=== PATIENT | male | born 1970 | race African-American/Black ===

== ENCOUNTER 2018-05-15 20:06 | Emergency (ER) | payer MEDICAID ==
[~2018-05-15] VITALS: Ht 177.8 cm; Wt 68.0 kg
[2018-05-15] MEDS ORDERED: VISCOUS LIDOCAINE 2% 15 ML UDC PO STA (22:09)
[2018-05-15] MEDS ORDERED: MAGNESIUM/ALUMINUM HYDROXIDE/SIMETHICONE 30ML UDC PO STA (22:09)
[2018-05-15] MEDS ORDERED: SODIUM CHLORIDE 0.9% 1,000 ML IV ONE (22:09)
[2018-05-15] MEDS ORDERED: PANTOPRAZOLE SODIUM 40 MG/VIAL IV STA (22:09)
[2018-05-15] MEDS ORDERED: NITROGLYCERIN 0.4MG TABLET SL SL ONE (22:30)
[2018-05-15] MEDS ORDERED: ASPIRIN 325MG EC TABLET PO ONE (22:30)
[2018-05-15 22:43] LABS: BASOPHILS % 0.6 % (0.0-2.0); HEMATOCRIT. 50.1 % (42.0-52.0); HEMOGLOBIN. 17.2 g/dL (14.0-18.0); LYMPHOCYTES % 25.9 % (20.0-50.0); MEAN CORPUSCULAR HEMOGLOBIN 29.5 pg (28.0-32.0); MEAN CORPUSCULAR VOLUME 86.1 fL (80.0-94.0); MEAN PLATELET VOLUME 7.1 fl (7.4-10.4); MONOCYTES % 13.1 % (2.0-8.0); NEUTROPHILS % 59.4 % (40.0-76.0); PLATELET 334 x1000/uL (130-400); RED BLOOD CELL COUNT 5.82 mill/uL (4.7-6.1); RED CELL DISTRIBUTION WIDTH 12.7 % (11.6-14.6)
[2018-05-15 22:45] LABS: CHLORIDE 89 mEq/L (98-107)
[2018-05-15 22:59] VITALS: BP 151/101
[2018-05-15] MEDS ORDERED: MORPHINE SULFATE 4 MG/ML CPJ (NOT FOR IM USE) IV ONE (23:00)
== END 2018-05-15 23:21 | disposition short-term general hospital (02) ==
LOC: ER 20:06
DX: I21.3 ST elevation (STEMI) myocardial infarction of unspecified site (principal); F17.200 Nicotine dependence, unspecified, uncomplicated
CPT/HCPCS: 36415; 71045; 80053; 83690; 84484; 85025; 93005; 96361; 96374; 96375; 99291; C9113; J2270; J7030

== ENCOUNTER 2019-02-21 13:19 | Emergency (ER) | payer MEDICAID ==
[~2019-02-21] VITALS: Ht 177.8 cm; Wt 60.0 kg
[2019-02-21] MEDS ORDERED: SODIUM CHLORIDE 0.9% 1,000 ML IV ONE (14:19)
[2019-02-21] MEDS ORDERED: ONDANSETRON HCL 4MG/2ML INJ IV STA (14:19)
[2019-02-21] MEDS ORDERED: MORPHINE SULFATE 4 MG/ML CPJ (NOT FOR IM USE) IV STA (14:19)
[2019-02-21] MEDS ORDERED: FAMOTIDINE 20MG/2ML VIAL IV ONE (14:30)
[2019-02-21] MEDS ORDERED: MAGNESIUM/ALUMINUM HYDROXIDE/SIMETHICONE 30ML UDC PO ONE (14:30)
[2019-02-21 14:48] LABS: BASOPHILS % 0.2 % (0.0-2.0); HEMATOCRIT. 45.3 % (42.0-52.0); HEMOGLOBIN. 14.7 g/dL (14.0-18.0); LYMPHOCYTES % 7.4 % (20.0-50.0); MEAN CORPUSCULAR HEMOGLOBIN 28.6 pg (28.0-32.0); MEAN PLATELET VOLUME 7.3 fl (7.4-10.4); MONOCYTES % 3.4 % (2.0-8.0); PLATELET 361 x1000/uL (130-400); RED BLOOD CELL COUNT 5.15 mill/uL (4.7-6.1); RED CELL DISTRIBUTION WIDTH 13.4 % (11.6-14.6)
[2019-02-21 14:56] LABS: CHLORIDE 106 mEq/L (98-107); PROTHROMBIN TIME 10.7 sec (9.6-11.0)
[2019-02-21 15:23] LABS: CLARITY URINE CLOUDY (CLEAR); COLOR URINE YELLOW (YELLOW); KETONES URINE NEGATIVE (NEGATIVE); LEUKOCYTE ESTERASE URINE NEGATIVE (NEGATIVE); NITRITE URINE NEGATIVE (NEGATIVE); OCCULT BLOOD URINE NEGATIVE (NEGATIVE); PH URINE >=9.0 (4.5-8.0); PROTEIN URINE 2+ (NEGATIVE); SPECIFIC GRAVITY URINE 1.025 (1.005-1.030); UROBILINOGEN URINE 0.2 E.U./dL (0.2-1.0)
[2019-02-21 16:10] LABS: *BARBITURATES SCREEN URINE NEGATIVE (NEGATIVE)
[2019-02-21 16:11] LABS: *AMPHETAMINES SCREEN URINE NEGATIVE (NEGATIVE); *BENZODIAZEPINES SCREEN URINE NEGATIVE (NEGATIVE); *COCAINE SCREEN URINE NEGATIVE (NEGATIVE); METHADONE URINE SCREEN NEGATIVE (NEGATIVE); OPIATES URINE SCREEN NEGATIVE (NEGATIVE); PHENCYCLIDINE URINE SCREEN NEGATIVE (NEGATIVE)
[2019-02-21 16:12] LABS: CANNABINOID URINE SCREEN PRESUMTIVE POSITIVE (NEGATIVE)
[2019-02-21] MEDS ORDERED: KETOROLAC 30MG/ML VIAL IV ONE (16:45)
[2019-02-21] MEDS ORDERED: METOCLOPRAMIDE HCL 10MG/2ML VIAL IV ONE (17:15)
[2019-02-21 21:08] VITALS: BP 132/67
== END 2019-02-21 21:10 | disposition home or self-care (01) ==
LOC: ER 13:19
DX: K29.70 Gastritis, unspecified, without bleeding (principal); J44.9 Chronic obstructive pulmonary disease, unspecified; R80.9 Proteinuria, unspecified; R11.10 Vomiting, unspecified; F12.10 Cannabis abuse, uncomplicated; Z87.891 Personal history of nicotine dependence
CPT/HCPCS: 36415; 71045; 74176; 80053; 80305; 80320; 81003; 83690; 83880; 84484; 85025; 85610; 93005; 96361; 96374; 96375; 99284; J1885; J2270; J2405; J2765; J3490; J7030; G0480

== ENCOUNTER 2019-02-25 00:17 | Inpatient (IN) | payer MEDICAID ==
[~2019-02-25] VITALS: Ht 177.8 cm; Wt 68.0 kg
[2019-02-25] MEDS ORDERED: SODIUM CHLORIDE 0.9% 1,000 ML IV ONE (03:52)
[2019-02-25] MEDS ORDERED: KETOROLAC 30MG/ML VIAL IV STA (03:52)
[2019-02-25] MEDS ORDERED: METOCLOPRAMIDE HCL 10MG/2ML VIAL IV STA (03:52)
[2019-02-25 04:03] LABS: BASOPHILS % 0.4 % (0.0-2.0); CHLORIDE 98 mEq/L (98-107); EOSINOPHILS % 0.3 % (0.0-5.0); HEMATOCRIT. 49.9 % (42.0-52.0); HEMOGLOBIN. 16.5 g/dL (14.0-18.0); LYMPHOCYTES % 21.3 % (20.0-50.0); MEAN CORPUSCULAR HEMOGLOBIN 28.8 pg (28.0-32.0); MEAN CORPUSCULAR VOLUME 86.9 fL (80.0-94.0); MEAN PLATELET VOLUME 7.3 fl (7.4-10.4); MONOCYTES % 11.5 % (2.0-8.0); NEUTROPHILS % 66.5 % (40.0-76.0); PLATELET 378 x1000/uL (130-400); RED BLOOD CELL COUNT 5.74 mill/uL (4.7-6.1); RED CELL DISTRIBUTION WIDTH 13.2 % (11.6-14.6)
[2019-02-25] MEDS ORDERED: NA PHOS,M-B/NA PHOS,DI-BA ENEMA 118ML PR PRN (06:45)
[2019-02-25] MEDS ORDERED: DOCUSATE SODIUM 100MG CAPSULE PO PRN (06:45)
[2019-02-25] MEDS ORDERED: LORAZEPAM 2MG/ML CPJ IV PRN (06:45)
[2019-02-25] MEDS ORDERED: CLONIDINE 0.1MG TABLET PO PRN (06:45)
[2019-02-25] MEDS ORDERED: DIPHENHYDRAMINE 50MG/ML VIAL IV PRN (06:45)
[2019-02-25] MEDS ORDERED: HYDROCODONE/ACETAMINOPHEN 10/325MG TABLET PO PRN (06:45)
[2019-02-25] MEDS ORDERED: ACETAMINOPHEN 325MG TABLET PO PRN (06:45)
[2019-02-25] MEDS ORDERED: GUAIFENESIN 200MG/10ML SUGAR FREE UDC PO PRN (06:45)
[2019-02-25] MEDS ORDERED: IPRATROPIUM/ALBUTEROL 0.5-3(2.5)MG/3ML NEB HHN PRN (06:45)
[2019-02-25] MEDS ORDERED: MAGNESIUM/ALUMINUM HYDROXIDE/SIMETHICONE 30ML UDC PO PRN (06:45)
[2019-02-25] MEDS ORDERED: POTASSIUM CHLORIDE 20MEQ TABLET SR PO ONE (06:50)
[2019-02-25 08:00] VITALS: BP 118/99
[2019-02-25] MEDS: ENOXAPARIN 40MG/0.4ML SYR SUBCUT SCH (09:52)
[2019-02-25] MEDS: ONDANSETRON HCL 4MG/2ML INJ IV PRN ×2 (10:13→18:38)
[2019-02-25] MEDS: MORPHINE SULFATE 2 MG/ML CPJ (NOT FOR IM USE) IV PRN ×3 (10:14→18:41)
[2019-02-25] MEDS: SODIUM CHLORIDE 0.9% INJ 3ML FLUSH IVF SCH (13:45)
[2019-02-25] MEDS: SODIUM CHLORIDE 0.45% 1,000 ML IV SCH (17:24)
[2019-02-25 20:00] VITALS: BP 108/76
[2019-02-26] VITALS: BP 110/75
[2019-02-26] MEDS: SODIUM CHLORIDE 0.9% INJ 3ML FLUSH IVF SCH ×3 (00:28→14:17)
[2019-02-26] MEDS: SODIUM CHLORIDE 0.45% 1,000 ML IV SCH ×2 (02:31→12:30)
[2019-02-26 04:00] VITALS: BP 98/73
[2019-02-26 06:57] LABS: BASOPHILS % 0.7 % (0.0-2.0); EOSINOPHILS % 2.9 % (0.0-5.0); HEMATOCRIT. 44.6 % (42.0-52.0); LYMPHOCYTES % 28.6 % (20.0-50.0); MEAN CORPUSCULAR HEMOGLOBIN 29.1 pg (28.0-32.0); MEAN CORPUSCULAR VOLUME 86.7 fL (80.0-94.0); MEAN PLATELET VOLUME 7.1 fl (7.4-10.4); MONOCYTES % 10.5 % (2.0-8.0); NEUTROPHILS % 57.3 % (40.0-76.0); PLATELET 326 x1000/uL (130-400); RED BLOOD CELL COUNT 5.15 mill/uL (4.7-6.1); RED CELL DISTRIBUTION WIDTH 12.9 % (11.6-14.6)
[2019-02-26] MEDS: ENOXAPARIN 40MG/0.4ML SYR SUBCUT SCH (08:15)
[2019-02-26 08:16] LABS: CHLORIDE 105 mEq/L (98-107)
[2019-02-26 09:07] VITALS: BP 121/83
[2019-02-26] MEDS ORDERED: OMEPRAZOLE 20MG CAPSULE EXTENDED RELEASE PO SCH (11:25)
[2019-02-26 12:00] VITALS: BP 111/79
[2019-02-26 14:00] VITALS: BP 100/61
[2019-02-26 17:10] VITALS: BP 100/61
== END 2019-02-26 17:55 | disposition home or self-care (01) | DRG 241 ==
LOC: ER 00:17 → 6EST 05:26 → EDBEDREQ 05:30 → EDBEDREQTM 05:30 → ENRESERV 07:02
PROVIDERS: ADMIT Internal Medicine; ATTEND Internal Medicine
DX: K29.70 Gastritis, unspecified, without bleeding (principal); R65.10 Systemic inflammatory response syndrome (SIRS) of non-infectious origin without acute organ dysfunction; E87.6 Hypokalemia; F12.90 Cannabis use, unspecified, uncomplicated; F17.210 Nicotine dependence, cigarettes, uncomplicated
CPT/HCPCS: 36415; 76705; 99285; C1893; J1650; J1885; J2270; J2405; J2765; J7030

== ENCOUNTER 2019-08-21 18:25 | Inpatient (IN) | payer MEDICAID ==
[~2019-08-21] VITALS: Ht 172.7 cm; Wt 81.6 kg
[~2019-08-21 18:25] MED LIST: FAMO20TA8 PO; IBUP-2029 MT; OMEP20CA14 MT; ONDA4TAB11 PO; PROM25SU57 RC; PROT40 PO; SUCR1TAB PO; TAMS-11 PO; WARF2TAB57 PO
[2019-08-21] MEDS ORDERED: KETOROLAC 30MG/ML VIAL IV STA (19:47)
[2019-08-21] MEDS ORDERED: ONDANSETRON HCL 4MG/2ML INJ IV STA (19:47)
[2019-08-21] MEDS ORDERED: SODIUM CHLORIDE 0.9% 1,000 ML IV ONE (19:47)
[2019-08-21] MEDS ORDERED: ACETAMINOPHEN 325MG TABLET PO STA (19:58)
[2019-08-21] MEDS ORDERED: LORAZEPAM 2MG/ML CPJ IV ONE (20:00)
[2019-08-21] MEDS ORDERED: MAGNESIUM/ALUMINUM HYDROXIDE/SIMETHICONE 30ML UDC PO ONE (20:00)
[2019-08-21] MEDS ORDERED: VISCOUS LIDOCAINE 2% 15 ML UDC PO ONE (20:00)
[2019-08-21] MEDS ORDERED: FAMOTIDINE 20MG/2ML VIAL IV ONE (20:00)
[2019-08-21 20:37] LABS: BASOPHILS % 0.5 % (0.0-2.0); EOSINOPHILS % 0.3 % (0.0-5.0); HEMATOCRIT. 49.4 % (42.0-52.0); HEMOGLOBIN. 17.1 g/dL (14.0-18.0); LYMPHOCYTES % 20.4 % (20.0-50.0); MEAN CORPUSCULAR HEMOGLOBIN 29.6 pg (28.0-32.0); MEAN CORPUSCULAR VOLUME 85.3 fL (80.0-94.0); MEAN PLATELET VOLUME 7.4 fl (7.4-10.4); MONOCYTES % 7.8 % (2.0-8.0); PLATELET 448 x1000/uL (130-400); RED BLOOD CELL COUNT 5.78 mill/uL (4.7-6.1)
[2019-08-21 20:44] LABS: CHLORIDE 96 mEq/L (98-107)
[2019-08-21 20:48] LABS: ETHANOL BLOOD < 10 mg/dL
[2019-08-21] MEDS ORDERED: PIPERACILLIN/TAZ 3.375G PREMIX 50 ML IV ONE (22:00)
[2019-08-21] MEDS ORDERED: METRONIDAZOLE 500 MG PREMIX 100 ML IV ONE (22:00)
[2019-08-21 22:52] LABS: *AMPHETAMINES SCREEN URINE NEGATIVE (NEGATIVE); *BARBITURATES SCREEN URINE NEGATIVE (NEGATIVE)
[2019-08-21 22:53] LABS: *BENZODIAZEPINES SCREEN URINE NEGATIVE (NEGATIVE); *COCAINE SCREEN URINE NEGATIVE (NEGATIVE); CANNABINOID URINE SCREEN PRESUMTIVE POSITIVE (NEGATIVE); METHADONE URINE SCREEN NEGATIVE (NEGATIVE); OPIATES URINE SCREEN NEGATIVE (NEGATIVE); PHENCYCLIDINE URINE SCREEN NEGATIVE (NEGATIVE)
[2019-08-21] MEDS ORDERED: LORAZEPAM 2MG/ML CPJ IV PRN (23:45)
[2019-08-21] MEDS ORDERED: MORPHINE SULFATE 2 MG/ML CPJ (NOT FOR IM USE) IV PRN (23:45)
[2019-08-21] MEDS ORDERED: HYDROCODONE/ACETAMINOPHEN 5/325MG TABLET PO PRN (23:45)
[2019-08-22] MEDS ORDERED: LEVOFLOXACIN 500MG PREMIX 100 ML IV NR (00:30)
[2019-08-22] MEDS: SODIUM CHLORIDE 0.9% 1,000 ML IV SCH ×4 (00:58→23:50)
[2019-08-22 05:50] LABS: CHLORIDE 103 mEq/L (98-107)
[2019-08-22 05:55] LABS: PHOSPHORUS 3.5 mg/dL (2.5-4.9)
[2019-08-22] MEDS ORDERED: METRONIDAZOLE 500 MG PREMIX 100 ML IV SCH ×2 (06:00→09:00)
[2019-08-22 06:13] LABS: BASOPHILS % 0.7 % (0.0-2.0); EOSINOPHILS % 0.9 % (0.0-5.0); HEMOGLOBIN. 14.5 g/dL (14.0-18.0); LYMPHOCYTES % 15.8 % (20.0-50.0); MEAN CORPUSCULAR HEMOGLOBIN 28.9 pg (28.0-32.0); MEAN CORPUSCULAR VOLUME 85.4 fL (80.0-94.0); MEAN PLATELET VOLUME 7.2 fl (7.4-10.4); MONOCYTES % 9.9 % (2.0-8.0); NEUTROPHILS % 72.7 % (40.0-76.0); PLATELET 377 x1000/uL (130-400); RED BLOOD CELL COUNT 5.03 mill/uL (4.7-6.1)
[2019-08-22] MEDS ORDERED: POTASSIUM CHLORIDE 20MEQ TABLET SR PO ONE (08:45)
[2019-08-22 14:36] VITALS: BP 133/88
[2019-08-22] MEDS: DOCUSATE SODIUM 250MG CAPSULE PO SCH (15:44)
[2019-08-22] MEDS: ENOXAPARIN 40MG/0.4ML SYR SUBCUT SCH (15:45)
[2019-08-22 16:59] VITALS: BP 111/85
[2019-08-22] MEDS: METRONIDAZOLE 500 MG PREMIX 100 ML IV SCH (18:39)
[2019-08-22 20:00] VITALS: BP 113/77
[2019-08-22] MEDS ORDERED: LEVOFLOXACIN 500MG PREMIX 100 ML IV SCH (23:00)
[2019-08-23] VITALS: BP 130/86
[2019-08-23] MEDS: METRONIDAZOLE 500 MG PREMIX 100 ML IV SCH ×2 (02:38→09:26)
[2019-08-23 04:00] VITALS: BP 118/81
[2019-08-23 06:28] LABS: BASOPHILS % 0.9 % (0.0-2.0); EOSINOPHILS % 1.9 % (0.0-5.0); HEMATOCRIT. 40.9 % (42.0-52.0); HEMOGLOBIN. 13.9 g/dL (14.0-18.0); LYMPHOCYTES % 27.2 % (20.0-50.0); MEAN CORPUSCULAR HEMOGLOBIN 28.8 pg (28.0-32.0); MEAN PLATELET VOLUME 6.8 fl (7.4-10.4); MONOCYTES % 10.2 % (2.0-8.0); NEUTROPHILS % 59.8 % (40.0-76.0); PLATELET 374 x1000/uL (130-400); RED BLOOD CELL COUNT 4.82 mill/uL (4.7-6.1); RED CELL DISTRIBUTION WIDTH 13.1 % (11.6-14.6)
[2019-08-23 06:40] LABS: CHLORIDE 105 mEq/L (98-107)
[2019-08-23] MEDS ORDERED: OMEPRAZOLE 20MG CAPSULE EXTENDED RELEASE PO SCH (06:40)
[2019-08-23 08:00] VITALS: BP 130/85
[2019-08-23] MEDS: DOCUSATE SODIUM 250MG CAPSULE PO SCH (09:26)
[2019-08-23 12:00] VITALS: BP 105/73
[2019-08-23] MEDS: ENOXAPARIN 40MG/0.4ML SYR SUBCUT SCH (13:00)
[2019-08-23 15:35] VITALS: BP 105/73
== END 2019-08-23 16:55 | disposition home or self-care (01) | DRG 720 ==
LOC: ER 18:25 → EDBEDREQ 22:08 → EDBEDREQTM 22:08 → 6WST 22:10 → ENRESERV 08-22 02:43 → CANRESERV 08-22 02:43 → ENRESERV 08-22 10:31 → 7EST 08-22 18:27
PROVIDERS: ADMIT Internal Medicine Nephrology; ATTEND Internal Medicine Nephrology
DX: A41.9 Sepsis, unspecified organism (principal); E87.1 Hypo-osmolality and hyponatremia; E87.8 Other disorders of electrolyte and fluid balance, not elsewhere classified; J43.9 Emphysema, unspecified; K52.9 Noninfective gastroenteritis and colitis, unspecified; E87.6 Hypokalemia; F12.90 Cannabis use, unspecified, uncomplicated; I10 Essential (primary) hypertension; R50.9 Fever, unspecified
CPT/HCPCS: 36415; 71045; 80048; 80053; 80305; 80320; 83605; 83735; 83880; 84100; 84145; 84484; 85025; 87070; 87430; 87635; 87804; 99291; J1650; J1885; J1956; J2060; J2405; J2543; J3490; J7030; G0480; U0002

== ENCOUNTER 2020-02-03 06:26 | Emergency (ER) | payer MEDICAID ==
[~2020-02-03] VITALS: Ht 177.8 cm; Wt 68.0 kg
[~2020-02-03 06:26] MED LIST changes: -FAMO20TA8 PO; -IBUP-2029 MT; -OMEP20CA14 MT
[2020-02-03] MEDS ORDERED: ONDANSETRON HCL 4MG/2ML INJ IV STA (06:44)
[2020-02-03] MEDS ORDERED: SODIUM CHLORIDE 0.9% 1,000 ML IV ONE (06:44)
[2020-02-03] MEDS ORDERED: MAGNESIUM/ALUMINUM HYDROXIDE/SIMETHICONE 30ML UDC PO STA (06:44)
[2020-02-03] MEDS ORDERED: FAMOTIDINE 20MG/2ML VIAL IV STA (06:44)
[2020-02-03 07:13] LABS: EOSINOPHILS % 0.5 % (0.0-5.0); HEMATOCRIT. 44.4 % (42.0-52.0); HEMOGLOBIN. 14.8 g/dL (14.0-18.0); LYMPHOCYTES % 26.1 % (20.0-50.0); MEAN CORPUSCULAR HEMOGLOBIN 28.7 pg (28.0-32.0); MEAN CORPUSCULAR VOLUME 86.1 fL (80.0-94.0); MEAN PLATELET VOLUME 6.7 fl (7.4-10.4); MONOCYTES % 10.9 % (2.0-8.0); NEUTROPHILS % 61.5 % (40.0-76.0); PLATELET 435 x1000/uL (130-400); RED BLOOD CELL COUNT 5.15 mill/uL (4.7-6.1); RED CELL DISTRIBUTION WIDTH 13.7 % (11.6-14.6)
[2020-02-03 07:21] LABS: CHLORIDE 98 mEq/L (98-107)
[2020-02-03 07:25] LABS: ETHANOL BLOOD < 10 mg/dL
[2020-02-03] MEDS ORDERED: HALOPERIDOL 5MG TABLET PO ONE (08:00)
[2020-02-03 10:26] VITALS: BP 120/80
== END 2020-02-03 10:27 | disposition home or self-care (01) ==
LOC: ER 06:58
DX: R11.2 Nausea with vomiting, unspecified (principal); R10.13 Epigastric pain; I10 Essential (primary) hypertension; F12.10 Cannabis abuse, uncomplicated; F17.200 Nicotine dependence, unspecified, uncomplicated; Z79.899 Other long term (current) drug therapy; Z87.442 Personal history of urinary calculi; Z87.19 Personal history of other diseases of the digestive system
CPT/HCPCS: 36415; 71045; 76705; 80053; 80320; 83690; 85025; 93005; 96361; 96374; 96375; 99285; J2405; J3490; J7030; 96376; J1630; G0480

== ENCOUNTER 2020-02-17 12:07 | Emergency (ER) | payer MEDICAID ==
[~2020-02-17] VITALS: Ht 177.8 cm; Wt 69.0 kg
[2020-02-17] MEDS ORDERED: KETOROLAC 30MG/ML VIAL IV STA (13:06)
[2020-02-17] MEDS ORDERED: ONDANSETRON HCL 4MG/2ML INJ IV STA (13:06)
[2020-02-17] MEDS ORDERED: SODIUM CHLORIDE 0.9% 1,000 ML IV ONE (13:06)
[2020-02-17 14:15] LABS: CHLORIDE 102 mEq/L (98-107)
[2020-02-17 14:16] LABS: BASOPHILS % 0.6 % (0.0-2.0); EOSINOPHILS % 0.1 % (0.0-5.0); HEMOGLOBIN. 15.2 g/dL (14.0-18.0); LYMPHOCYTES % 12.6 % (20.0-50.0); MEAN CORPUSCULAR HEMOGLOBIN 28.8 pg (28.0-32.0); MEAN CORPUSCULAR VOLUME 87.1 fL (80.0-94.0); MEAN PLATELET VOLUME 6.6 fl (7.4-10.4); MONOCYTES % 8.6 % (2.0-8.0); NEUTROPHILS % 78.1 % (40.0-76.0); PLATELET 404 x1000/uL (130-400); RED BLOOD CELL COUNT 5.28 mill/uL (4.7-6.1); RED CELL DISTRIBUTION WIDTH 15.1 % (11.6-14.6)
[2020-02-17 14:19] LABS: ETHANOL BLOOD < 10 mg/dL
[2020-02-17 14:47] LABS: INR 1.1; PROTHROMBIN TIME 11.3 sec (9.6-11.0)
[2020-02-17] MEDS ORDERED: ONDANSETRON HCL 4MG/2ML INJ IV ONE (15:00)
[2020-02-17] MEDS ORDERED: FAMOTIDINE 20MG/2ML VIAL IV ONE (15:00)
[2020-02-17] MEDS ORDERED: MAGNESIUM/ALUMINUM HYDROXIDE/SIMETHICONE 30ML UDC PO ONE (15:30)
[2020-02-17] MEDS ORDERED: HALOPERIDOL LACTATE 5MG/ML VIAL IM ONE (15:45)
[2020-02-17 18:45] VITALS: BP 122/78
== END 2020-02-17 18:45 | disposition home or self-care (01) ==
LOC: ER 12:07
DX: R10.13 Epigastric pain (principal); R11.2 Nausea with vomiting, unspecified; I10 Essential (primary) hypertension; Z79.899 Other long term (current) drug therapy; Z98.890 Other specified postprocedural states
CPT/HCPCS: 36415; 74176; 80053; 80320; 83690; 85025; 85610; 93005; 96361; 96372; 96374; 96375; 96376; 99285; J1630; J1885; J2405; J3490; J7030; G0480

== ENCOUNTER 2020-02-20 09:46 | Emergency (ER) | payer MEDICAID ==
[~2020-02-20] VITALS: Ht 177.8 cm; Wt 68.0 kg
[2020-02-20] MEDS ORDERED: SODIUM CHLORIDE 0.9% 1,000 ML IV ONE (10:07)
[2020-02-20] MEDS ORDERED: MORPHINE SULFATE 4 MG/ML CPJ (NOT FOR IM USE) IV STA (10:07)
[2020-02-20] MEDS ORDERED: ONDANSETRON HCL 4MG/2ML INJ IV STA (10:07)
[2020-02-20 10:29] LABS: BASOPHILS % 0.5 % (0.0-2.0); EOSINOPHILS % 0.3 % (0.0-5.0); HEMATOCRIT. 49.3 % (42.0-52.0); HEMOGLOBIN. 16.6 g/dL (14.0-18.0); LYMPHOCYTES % 23.3 % (20.0-50.0); MEAN CORPUSCULAR HEMOGLOBIN 29.1 pg (28.0-32.0); MEAN CORPUSCULAR VOLUME 86.7 fL (80.0-94.0); MEAN PLATELET VOLUME 6.7 fl (7.4-10.4); MONOCYTES % 9.1 % (2.0-8.0); NEUTROPHILS % 66.8 % (40.0-76.0); PLATELET 389 x1000/uL (130-400); RED BLOOD CELL COUNT 5.69 mill/uL (4.7-6.1); RED CELL DISTRIBUTION WIDTH 14.4 % (11.6-14.6)
[2020-02-20 11:38] LABS: INR 1.1; PROTHROMBIN TIME 11.6 sec (9.6-11.0)
[2020-02-20 11:43] LABS: CHLORIDE 93 mEq/L (98-107)
[2020-02-20] MEDS ORDERED: IOHEXOL-300 100 ML BOTTLE ONE (14:27)
[2020-02-20 15:17] LABS: CLARITY URINE CLEAR (CLEAR); COLOR URINE YELLOW (YELLOW); KETONES URINE TRACE (NEGATIVE); LEUKOCYTE ESTERASE URINE NEGATIVE (NEGATIVE); NITRITE URINE NEGATIVE (NEGATIVE); OCCULT BLOOD URINE 1+ (NEGATIVE); PH URINE 7.5 (4.5-8.0); PROTEIN URINE 1+ (NEGATIVE); SPECIFIC GRAVITY URINE 1.088 (1.005-1.030)
[2020-02-20 16:13] VITALS: BP 122/76
== END 2020-02-20 16:30 | disposition home or self-care (01) ==
LOC: ER 09:46
DX: R10.13 Epigastric pain (principal); R11.10 Vomiting, unspecified; I10 Essential (primary) hypertension; F17.200 Nicotine dependence, unspecified, uncomplicated; Z79.899 Other long term (current) drug therapy; Z98.890 Other specified postprocedural states
CPT/HCPCS: 36415; 71045; 74177; 80053; 81003; 83605; 83690; 84484; 85025; 85610; 86850; 86900; 86901; 93005; 96361; 96374; 96375; 99285; J2270; J2405; J7030; Q9967

== ENCOUNTER 2020-02-22 08:15 | Emergency (ER) | payer MEDICAID ==
[~2020-02-22] VITALS: Ht 177.8 cm; Wt 70.0 kg
[2020-02-22] MEDS ORDERED: SODIUM CHLORIDE 0.9% 1,000 ML IV ONE (08:42)
[2020-02-22] MEDS ORDERED: PANTOPRAZOLE SODIUM 40 MG/VIAL IV STA (08:42)
[2020-02-22] MEDS ORDERED: MAGNESIUM/ALUMINUM HYDROXIDE/SIMETHICONE 30ML UDC PO STA (08:42)
[2020-02-22] MEDS ORDERED: KETOROLAC 30MG/ML VIAL IV STA (08:42)
[2020-02-22] MEDS ORDERED: ONDANSETRON HCL 4MG/2ML INJ IV STA (08:42)
[2020-02-22 09:03] LABS: BASOPHILS % 1.3 % (0.0-2.0); EOSINOPHILS % 1.7 % (0.0-5.0); HEMATOCRIT. 45.8 % (42.0-52.0); HEMOGLOBIN. 15.2 g/dL (14.0-18.0); LYMPHOCYTES % 32.9 % (20.0-50.0); MEAN CORPUSCULAR HEMOGLOBIN 28.9 pg (28.0-32.0); MEAN PLATELET VOLUME 6.4 fl (7.4-10.4); MONOCYTES % 8.9 % (2.0-8.0); NEUTROPHILS % 55.2 % (40.0-76.0); PLATELET 356 x1000/uL (130-400); RED BLOOD CELL COUNT 5.27 mill/uL (4.7-6.1); RED CELL DISTRIBUTION WIDTH 14.1 % (11.6-14.6)
[2020-02-22 09:11] LABS: CHLORIDE 97 mEq/L (98-107)
[2020-02-22 09:15] LABS: ETHANOL BLOOD < 10 mg/dL
[2020-02-22 09:38] LABS: INR 1.1; PROTHROMBIN TIME 11.6 sec (9.6-11.0)
[2020-02-22] MEDS ORDERED: HALOPERIDOL LACTATE 5MG/ML VIAL IM ONE (10:15)
[2020-02-22 13:12] VITALS: BP 138/90
== END 2020-02-22 13:14 | disposition home or self-care (01) ==
LOC: ER 08:15
DX: R10.13 Epigastric pain (principal); R11.2 Nausea with vomiting, unspecified; I10 Essential (primary) hypertension; F12.10 Cannabis abuse, uncomplicated; Z79.899 Other long term (current) drug therapy
CPT/HCPCS: 36415; 80053; 80320; 83690; 85025; 85610; 93005; 96361; 96372; 96374; 96375; 99284; C9113; J1630; J1885; J2405; J7030; G0480

== ENCOUNTER 2020-03-02 09:35 | Emergency (ER) | payer MEDICAID ==
[~2020-03-02] VITALS: Ht 177.8 cm; Wt 68.0 kg
[2020-03-02] MEDS ORDERED: VISCOUS LIDOCAINE 2% 15 ML UDC PO STA (09:58)
[2020-03-02] MEDS ORDERED: MAGNESIUM/ALUMINUM HYDROXIDE/SIMETHICONE 30ML UDC PO STA (09:58)
[2020-03-02] MEDS ORDERED: MORPHINE SULFATE 4 MG/ML CPJ (NOT FOR IM USE) IV STA (09:58)
[2020-03-02] MEDS ORDERED: FAMOTIDINE 20MG/2ML VIAL IV STA (09:58)
[2020-03-02] MEDS ORDERED: SODIUM CHLORIDE 0.9% 1,000 ML IV ONE (09:58)
[2020-03-02] MEDS ORDERED: DICYCLOMINE 10 MG/5 ML ORAL SYR PO STA (09:58)
[2020-03-02 11:36] LABS: CLARITY URINE CLEAR (CLEAR); COLOR URINE YELLOW (YELLOW); KETONES URINE TRACE (NEGATIVE); LEUKOCYTE ESTERASE URINE NEGATIVE (NEGATIVE); NITRITE URINE NEGATIVE (NEGATIVE); OCCULT BLOOD URINE NEGATIVE (NEGATIVE); PROTEIN URINE 2+ (NEGATIVE); SPECIFIC GRAVITY URINE 1.032 (1.005-1.030)
[2020-03-02 11:48] LABS: BASOPHILS % 0.4 % (0.0-2.0); EOSINOPHILS % 0.2 % (0.0-5.0); HEMATOCRIT. 44.7 % (42.0-52.0); HEMOGLOBIN. 14.8 g/dL (14.0-18.0); MEAN CORPUSCULAR HEMOGLOBIN 28.7 pg (28.0-32.0); MEAN CORPUSCULAR VOLUME 86.9 fL (80.0-94.0); MEAN PLATELET VOLUME 6.6 fl (7.4-10.4); MONOCYTES % 8.9 % (2.0-8.0); NEUTROPHILS % 78.5 % (40.0-76.0); PLATELET 434 x1000/uL (130-400); RED BLOOD CELL COUNT 5.15 mill/uL (4.7-6.1); RED CELL DISTRIBUTION WIDTH 14.8 % (11.6-14.6)
[2020-03-02 11:57] LABS: CHLORIDE 98 mEq/L (98-107)
[2020-03-02 11:58] LABS: INR 1.1; PROTHROMBIN TIME 11.5 sec (9.6-11.0)
[2020-03-02 12:30] VITALS: BP 128/91
== END 2020-03-02 12:31 | disposition home or self-care (01) ==
LOC: ER 09:35
DX: K29.70 Gastritis, unspecified, without bleeding (principal); F17.200 Nicotine dependence, unspecified, uncomplicated; I10 Essential (primary) hypertension; Z79.899 Other long term (current) drug therapy; Z98.890 Other specified postprocedural states
CPT/HCPCS: 36415; 80053; 81003; 83690; 85025; 85610; 93005; 96374; 96375; 99284; J2270; J3490; J7030

== ENCOUNTER 2020-03-07 07:37 | Emergency (ER) | payer MEDICAID ==
[~2020-03-07] VITALS: Ht 177.8 cm; Wt 68.0 kg
[2020-03-07] MEDS ORDERED: SODIUM CHLORIDE 0.9% 1,000 ML IV ONE ×2 (08:00→12:15)
[2020-03-07] MEDS ORDERED: VISCOUS LIDOCAINE 2% 15 ML UDC PO STA (08:01)
[2020-03-07] MEDS ORDERED: PANTOPRAZOLE SODIUM 40 MG/VIAL IV STA (08:01)
[2020-03-07] MEDS ORDERED: MAGNESIUM/ALUMINUM HYDROXIDE/SIMETHICONE 30ML UDC PO STA (08:01)
[2020-03-07] MEDS ORDERED: ONDANSETRON HCL 4MG/2ML INJ IV ONE (08:15)
[2020-03-07 08:27] LABS: BASOPHILS % 0.8 % (0.0-2.0); HEMATOCRIT. 44.2 % (42.0-52.0); HEMOGLOBIN. 14.8 g/dL (14.0-18.0); LYMPHOCYTES % 31.9 % (20.0-50.0); MEAN CORPUSCULAR HEMOGLOBIN 29.2 pg (28.0-32.0); MEAN CORPUSCULAR VOLUME 87.1 fL (80.0-94.0); MEAN PLATELET VOLUME 6.4 fl (7.4-10.4); NEUTROPHILS % 54.3 % (40.0-76.0); PLATELET 389 x1000/uL (130-400); RED BLOOD CELL COUNT 5.07 mill/uL (4.7-6.1); RED CELL DISTRIBUTION WIDTH 14.2 % (11.6-14.6)
[2020-03-07 08:35] LABS: CHLORIDE 99 mEq/L (98-107)
[2020-03-07] MEDS ORDERED: FAMOTIDINE 20MG TABLET PO ONE (12:15)
[2020-03-07 14:45] VITALS: BP 124/84
== END 2020-03-07 14:55 | disposition home or self-care (01) ==
LOC: ER 07:58
DX: R10.13 Epigastric pain (principal); K29.70 Gastritis, unspecified, without bleeding; E86.0 Dehydration; I10 Essential (primary) hypertension; F12.10 Cannabis abuse, uncomplicated; Z79.899 Other long term (current) drug therapy
CPT/HCPCS: 36415; 80053; 83690; 85025; 93005; 96361; 96374; 96375; 99285; J2405; J7030

== ENCOUNTER 2020-04-01 07:55 | Inpatient (IN) | payer MEDICAID ==
[~2020-04-01] VITALS: Ht 177.8 cm; Wt 62.3 kg
[2020-04-01] MEDS ORDERED: PANTOPRAZOLE SODIUM 40 MG/VIAL IV STA (08:28)
[2020-04-01] MEDS ORDERED: MORPHINE SULFATE 4 MG/ML CPJ (NOT FOR IM USE) IV STA (08:28)
[2020-04-01] MEDS ORDERED: ONDANSETRON HCL 4MG/2ML INJ IV STA (08:28)
[2020-04-01] MEDS ORDERED: SODIUM CHLORIDE 0.9% 500 ML IV ONE (08:30)
[2020-04-01 09:16] LABS: BASOPHILS % 0.3 % (0.0-2.0); EOSINOPHILS % 0.1 % (0.0-5.0); HEMATOCRIT. 51.4 % (42.0-52.0); HEMOGLOBIN. 17.1 g/dL (14.0-18.0); LYMPHOCYTES % 10.6 % (20.0-50.0); MEAN CORPUSCULAR HEMOGLOBIN 28.8 pg (28.0-32.0); MEAN CORPUSCULAR VOLUME 86.8 fL (80.0-94.0); MEAN PLATELET VOLUME 7.2 fl (7.4-10.4); MONOCYTES % 10.2 % (2.0-8.0); NEUTROPHILS % 78.8 % (40.0-76.0); PLATELET 421 x1000/uL (130-400); RED BLOOD CELL COUNT 5.92 mill/uL (4.7-6.1); RED CELL DISTRIBUTION WIDTH 14.1 % (11.6-14.6)
[2020-04-01 09:25] LABS: CHLORIDE 88 mEq/L (98-107)
[2020-04-01 09:26] LABS: INR 1.1; PROTHROMBIN TIME 11.9 sec (9.6-11.0)
[2020-04-01 09:32] LABS: ETHANOL BLOOD < 10 mg/dL
[2020-04-01 12:01] LABS: CLARITY URINE CLEAR (CLEAR); COLOR URINE DARK YELLOW (YELLOW); KETONES URINE TRACE (NEGATIVE); LEUKOCYTE ESTERASE URINE NEGATIVE (NEGATIVE); NITRITE URINE NEGATIVE (NEGATIVE); OCCULT BLOOD URINE 2+ (NEGATIVE); PROTEIN URINE 3+ (NEGATIVE); SPECIFIC GRAVITY URINE 1.034 (1.005-1.030); UROBILINOGEN URINE 0.2 E.U./dL (0.2-1.0)
[2020-04-01] MEDS ORDERED: ACETAMINOPHEN 325MG TABLET PO PRN (12:30)
[2020-04-01 13:00] LABS: *AMPHETAMINES SCREEN URINE NEGATIVE (NEGATIVE); *BARBITURATES SCREEN URINE NEGATIVE (NEGATIVE); *BENZODIAZEPINES SCREEN URINE NEGATIVE (NEGATIVE); *COCAINE SCREEN URINE NEGATIVE (NEGATIVE); CANNABINOID URINE SCREEN PRESUMTIVE POSITIVE (NEGATIVE); METHADONE URINE SCREEN NEGATIVE (NEGATIVE); OPIATES URINE SCREEN PRESUMTIVE POSITIVE (NEGATIVE); PHENCYCLIDINE URINE SCREEN NEGATIVE (NEGATIVE)
[2020-04-01] MEDS ORDERED: DEXT 5%/0.45% NACL KCL 10MEQ/L 1,000 ML IV SCH ×2 (13:00→21:00)
[2020-04-01] MEDS ORDERED: MVI, ADULT NO.1 10 ML, FOLIC ACID 1 MG, THIAMINE HCL 100 MG in SODIUM CHLORIDE 0.9% 1,0... IV ONE ×4 (13:00)
[2020-04-01] MEDS ORDERED: POTASSIUM CHLORIDE INJ 40 MEQ in DEXT 5% WATER 250 ML IV ONE (14:00)
[2020-04-01 17:50] VITALS: BP 119/88
[2020-04-01 20:00] VITALS: BP 124/96
[2020-04-01] MEDS: PANTOPRAZOLE SODIUM 40 MG/VIAL IV SCH (20:25)
[2020-04-01] MEDS: DOCUSATE SODIUM 100MG CAPSULE PO SCH (20:26)
[2020-04-01] MEDS ORDERED: SENNOSIDES/DOCUSATE SOD 8.6/50MG TABLET PO PRN (21:00)
[2020-04-01 21:05] LABS: BASOPHILS % 0.3 % (0.0-2.0); EOSINOPHILS % 0.2 % (0.0-5.0); HEMATOCRIT. 46.5 % (42.0-52.0); HEMOGLOBIN. 15.5 g/dL (14.0-18.0); LYMPHOCYTES % 16.2 % (20.0-50.0); MEAN CORPUSCULAR HEMOGLOBIN 28.9 pg (28.0-32.0); MEAN CORPUSCULAR VOLUME 86.6 fL (80.0-94.0); MEAN PLATELET VOLUME 7.1 fl (7.4-10.4); MONOCYTES % 10.3 % (2.0-8.0); PLATELET 351 x1000/uL (130-400); RED BLOOD CELL COUNT 5.38 mill/uL (4.7-6.1); RED CELL DISTRIBUTION WIDTH 13.7 % (11.6-14.6)
[2020-04-01] MEDS: KCL 10MEQ/50ML PREMIX 50 ML IV SCH ×2 (22:11→23:47)
[2020-04-01] MEDS: MORPHINE SULFATE 2 MG/ML CPJ (NOT FOR IM USE) IV PRN (22:13)
[2020-04-02] VITALS: BP 115/80
[2020-04-02] MEDS ORDERED: OMEP40CA12 PO (00:12)
[2020-04-02 00:55] LABS: BASOPHILS % 0.6 % (0.0-2.0); EOSINOPHILS % 0.7 % (0.0-5.0); HEMOGLOBIN. 15.8 g/dL (14.0-18.0); LYMPHOCYTES % 24.2 % (20.0-50.0); MEAN CORPUSCULAR HEMOGLOBIN 28.7 pg (28.0-32.0); MEAN CORPUSCULAR VOLUME 87.1 fL (80.0-94.0); MONOCYTES % 12.4 % (2.0-8.0); NEUTROPHILS % 62.1 % (40.0-76.0); PLATELET 352 x1000/uL (130-400); RED CELL DISTRIBUTION WIDTH 13.9 % (11.6-14.6)
[2020-04-02] MEDS: KCL 10MEQ/50ML PREMIX 50 ML IV SCH (01:26)
[2020-04-02 04:30] VITALS: BP 106/81
[2020-04-02 05:39] LABS: CHLORIDE 99 mEq/L (98-107)
[2020-04-02] MEDS ORDERED: *PATIENT'S OWN MEDICATION STORAGE XX SCH (06:15)
[2020-04-02] MEDS: DEXT 5%/0.9% NACL KCL 20MEQ/L 1,000 ML IV SCH ×3 (06:19→23:15)
[2020-04-02 06:40] LABS: BASOPHILS % 0.5 % (0.0-2.0); EOSINOPHILS % 0.7 % (0.0-5.0); LYMPHOCYTES % 26.9 % (20.0-50.0); MEAN CORPUSCULAR HEMOGLOBIN 29.1 pg (28.0-32.0); MEAN CORPUSCULAR VOLUME 87.3 fL (80.0-94.0); MEAN PLATELET VOLUME 7.3 fl (7.4-10.4); MONOCYTES % 12.9 % (2.0-8.0); PLATELET 355 x1000/uL (130-400); RED BLOOD CELL COUNT 5.51 mill/uL (4.7-6.1); RED CELL DISTRIBUTION WIDTH 14.2 % (11.6-14.6)
[2020-04-02] MEDS: DOCUSATE SODIUM 100MG CAPSULE PO SCH ×2 (08:34→18:29)
[2020-04-02] MEDS: PANTOPRAZOLE SODIUM 40 MG/VIAL IV SCH ×2 (08:39→18:29)
[2020-04-02 09:03] VITALS: BP 100/61
[2020-04-02 12:13] VITALS: BP 106/69
[2020-04-02 12:31] LABS: BASOPHILS % 0.7 % (0.0-2.0); EOSINOPHILS % 0.9 % (0.0-5.0); HEMATOCRIT. 47.1 % (42.0-52.0); HEMOGLOBIN. 15.5 g/dL (14.0-18.0); LYMPHOCYTES % 30.8 % (20.0-50.0); MEAN CORPUSCULAR HEMOGLOBIN 28.7 pg (28.0-32.0); MEAN CORPUSCULAR VOLUME 87.3 fL (80.0-94.0); MEAN PLATELET VOLUME 6.9 fl (7.4-10.4); MONOCYTES % 12.8 % (2.0-8.0); NEUTROPHILS % 54.8 % (40.0-76.0); PLATELET 371 x1000/uL (130-400); RED CELL DISTRIBUTION WIDTH 14.2 % (11.6-14.6)
[2020-04-02] MEDS ORDERED: MIDAZOLAM HCL 2 MG/2 ML VIAL ONE ×2 (13:50→15:01)
[2020-04-02] MEDS ORDERED: LIDOCAINE HCL/PF 1% 10 MG/ML 5ML VIAL ONE (13:50)
[2020-04-02] MEDS ORDERED: PROPOFOL 200MG/20ML VIAL IV ONE (13:50)
[2020-04-02] MEDS ORDERED: ONDANSETRON HCL 4MG/2ML INJ ONE (14:07)
[2020-04-02 17:30] VITALS: BP 126/88
[2020-04-02] MEDS: ONDANSETRON HCL 4MG/2ML INJ IV PRN (18:54)
[2020-04-02 20:00] VITALS: BP 114/77
[2020-04-02] MEDS ORDERED: ATORVASTATIN CALCIUM 20MG TABLET PO SCH (21:00)
[2020-04-02] MEDS: MORPHINE SULFATE 2 MG/ML CPJ (NOT FOR IM USE) IV PRN (23:54)
[2020-04-03] VITALS: BP 157/92
[2020-04-03] MEDS: ONDANSETRON HCL 4MG/2ML INJ IV PRN (00:43)
[2020-04-03 04:00] VITALS: BP 153/110
[2020-04-03] MEDS ORDERED: ONDANSETRON HCL 4MG/2ML INJ IV PRN (04:45)
[2020-04-03] MEDS ORDERED: ONDANSETRON HCL 4MG/2ML INJ IV ONE (04:45)
[2020-04-03] MEDS ORDERED: ONDANSETRON INJ 8 MG in DEXTROSE 5% WATER 50 ML IV SCH (05:00)
[2020-04-03] MEDS ORDERED: METOCLOPRAMIDE HCL 10MG/2ML VIAL IV SCH ×2 (05:00→06:00)
[2020-04-03] MEDS ORDERED: METOCLOPRAMIDE HCL 10MG/2ML VIAL IV PRN (05:00)
[2020-04-03 07:14] LABS: BASOPHILS % 0.4 % (0.0-2.0); EOSINOPHILS % 0.1 % (0.0-5.0); HEMATOCRIT. 45.1 % (42.0-52.0); LYMPHOCYTES % 10.5 % (20.0-50.0); MEAN CORPUSCULAR HEMOGLOBIN 28.9 pg (28.0-32.0); MEAN CORPUSCULAR VOLUME 86.5 fL (80.0-94.0); MEAN PLATELET VOLUME 7.2 fl (7.4-10.4); MONOCYTES % 5.5 % (2.0-8.0); NEUTROPHILS % 83.5 % (40.0-76.0); PLATELET 365 x1000/uL (130-400); RED BLOOD CELL COUNT 5.21 mill/uL (4.7-6.1); RED CELL DISTRIBUTION WIDTH 13.8 % (11.6-14.6)
[2020-04-03 07:22] LABS: CHLORIDE 103 mEq/L (98-107)
[2020-04-03 08:30] VITALS: BP 138/96
[2020-04-03] MEDS: DOCUSATE SODIUM 100MG CAPSULE PO SCH (08:39)
[2020-04-03] MEDS: PANTOPRAZOLE SODIUM 40 MG/VIAL IV SCH (08:40)
[2020-04-03] MEDS: MORPHINE SULFATE 2 MG/ML CPJ (NOT FOR IM USE) IV PRN (09:51)
[2020-04-03 12:00] VITALS: BP 126/88
[2020-04-03] MEDS: DEXT 5%/0.9% NACL KCL 20MEQ/L 1,000 ML IV SCH (13:07)
[2020-04-03 13:20] VITALS: BP 129/77
[2020-04-03] MEDS ORDERED: ONDANSETRON INJ 8 MG in DEXTROSE 5% WATER 50 ML IV PRN (14:00)
[2020-04-03 15:44] VITALS: BP 130/79
== END 2020-04-03 16:03 | disposition home or self-care (01) | DRG 241 ==
LOC: ER 07:55 → EDBEDREQTM 10:18 → EDBEDREQ 10:18 → EDBEDREQTM 11:19 → EDBEDREQ 11:19 → ENRESERV 17:04 → 6WST 17:44
PROVIDERS: ADMIT Family Medicine Adult Medicine; ATTEND Family Medicine Adult Medicine
PROC: 0DB78ZX Excision of Stomach, Pylorus, Via Natural or Artificial Opening Endoscopic, Diagnostic (ICD-10-PCS; principal; 2020-04-02)
DX: K29.61 Other gastritis with bleeding (principal); D72.829 Elevated white blood cell count, unspecified; I10 Essential (primary) hypertension; J43.9 Emphysema, unspecified; F12.10 Cannabis abuse, uncomplicated; K22.11 Ulcer of esophagus with bleeding; E78.5 Hyperlipidemia, unspecified; E87.1 Hypo-osmolality and hyponatremia; E87.8 Other disorders of electrolyte and fluid balance, not elsewhere classified; R73.9 Hyperglycemia, unspecified; R11.2 Nausea with vomiting, unspecified; E87.6 Hypokalemia; Z20.828 Contact with and (suspected) exposure to other viral communicable diseases; E87.3 Alkalosis; D47.3 Essential (hemorrhagic) thrombocythemia; K44.9 Diaphragmatic hernia without obstruction or gangrene; K59.00 Constipation, unspecified; Z82.49 Family history of ischemic heart disease and other diseases of the circulatory system; Z86.718 Personal history of other venous thrombosis and embolism; Z79.01 Long term (current) use of anticoagulants; Z87.891 Personal history of nicotine dependence
CPT/HCPCS: 36415; 71045; 76700; 80053; 80061; 80305; 80320; 81003; 83036; 83735; 83880; 84484; 85025; 86850; 86900; 87426; 88305; 93005; 93306; 93970; 99291; C9113; J2250; J2270; J2405; J2704; J2765; J3411; J3480; J3490; J7030; J7040; J7060; G0480

== ENCOUNTER 2020-04-26 10:50 | Emergency (ER) | payer MEDICAID ==
[~2020-04-26] VITALS: Ht 177.8 cm; Wt 68.0 kg
[~2020-04-26 10:50] MED LIST changes: +OMEP40CA12 PO; -ONDA4TAB11 PO; -PROM25SU57 RC; -PROT40 PO; -SUCR1TAB PO; -TAMS-11 PO; -WARF2TAB57 PO
[2020-04-26] MEDS ORDERED: VISCOUS LIDOCAINE 2% 15 ML UDC PO ONE (12:00)
[2020-04-26] MEDS ORDERED: FAMOTIDINE 20MG/2ML VIAL IV ONE (12:00)
[2020-04-26] MEDS ORDERED: ONDANSETRON HCL 4MG/2ML INJ IV ONE (12:00)
[2020-04-26] MEDS ORDERED: MAGNESIUM/ALUMINUM HYDROXIDE/SIMETHICONE 30ML UDC PO ONE (12:00)
[2020-04-26] MEDS ORDERED: SODIUM CHLORIDE 0.9% 1,000 ML IV ONE (12:00)
[2020-04-26 13:28] LABS: BASOPHILS % 0.2 % (0.0-2.0); EOSINOPHILS % 0.1 % (0.0-5.0); HEMATOCRIT. 53.2 % (42.0-52.0); HEMOGLOBIN. 17.7 g/dL (14.0-18.0); LYMPHOCYTES % 11.9 % (20.0-50.0); MEAN CORPUSCULAR HEMOGLOBIN 28.7 pg (28.0-32.0); MEAN CORPUSCULAR VOLUME 86.4 fL (80.0-94.0); MEAN PLATELET VOLUME 7.5 fl (7.4-10.4); MONOCYTES % 9.3 % (2.0-8.0); NEUTROPHILS % 78.5 % (40.0-76.0); PLATELET 394 x1000/uL (130-400); RED BLOOD CELL COUNT 6.16 mill/uL (4.7-6.1); RED CELL DISTRIBUTION WIDTH 13.7 % (11.6-14.6)
[2020-04-26 13:34] LABS: CHLORIDE 89 mEq/L (98-107)
[2020-04-26] MEDS ORDERED: HALOPERIDOL LACTATE 5MG/ML VIAL IM ONE (15:15)
[2020-04-26 15:53] LABS: INR 1.2; PROTHROMBIN TIME 12.3 sec (9.6-11.0)
[2020-04-26 16:40] VITALS: BP 122/84
== END 2020-04-26 17:00 | disposition home or self-care (01) ==
LOC: ER 10:50
DX: R10.13 Epigastric pain (principal); R11.2 Nausea with vomiting, unspecified; F12.10 Cannabis abuse, uncomplicated; R10.84 Generalized abdominal pain; Z87.19 Personal history of other diseases of the digestive system
CPT/HCPCS: 36415; 80053; 83690; 85025; 85610; 93005; 96361; 96372; 96374; 96375; 99285; J1630; J2405; J3490; J7030

== ENCOUNTER 2020-04-28 08:18 | Inpatient (IN) | payer MEDICAID ==
[~2020-04-28] VITALS: Ht 172.7 cm; Wt 67.1 kg
[2020-04-28] MEDS ORDERED: SODIUM CHLORIDE 0.9% 1,000 ML IV ONE (09:30)
[2020-04-28] MEDS ORDERED: OLANZAPINE 10 MG/VIAL IM ONE (09:30)
[2020-04-28 10:13] LABS: BASOPHILS % 0.5 % (0.0-2.0); EOSINOPHILS % 0.1 % (0.0-5.0); HEMATOCRIT. 57.9 % (42.0-52.0); HEMOGLOBIN. 19.5 g/dL (14.0-18.0); LYMPHOCYTES % 14.9 % (20.0-50.0); MEAN CORPUSCULAR VOLUME 86.2 fL (80.0-94.0); MEAN PLATELET VOLUME 7.3 fl (7.4-10.4); MONOCYTES % 9.4 % (2.0-8.0); NEUTROPHILS % 75.1 % (40.0-76.0); PLATELET 355 x1000/uL (130-400); RED BLOOD CELL COUNT 6.72 mill/uL (4.7-6.1); RED CELL DISTRIBUTION WIDTH 13.4 % (11.6-14.6)
[2020-04-28 10:22] LABS: CHLORIDE 82 mEq/L (98-107)
[2020-04-28 10:23] LABS: INR 1.1; PROTHROMBIN TIME 11.7 sec (9.6-11.0)
[2020-04-28] MEDS ORDERED: CAPSAICIN 0.075% CREAM 60GM TOP PRN (10:45)
[2020-04-28 11:10] LABS: CLARITY URINE CLEAR (CLEAR); COLOR URINE YELLOW (YELLOW); KETONES URINE NEGATIVE (NEGATIVE); LEUKOCYTE ESTERASE URINE TRACE (NEGATIVE); NITRITE URINE NEGATIVE (NEGATIVE); OCCULT BLOOD URINE NEGATIVE (NEGATIVE); PH URINE 5.5 (4.5-8.0); PROTEIN URINE NEGATIVE (NEGATIVE); SPECIFIC GRAVITY URINE 1.021 (1.005-1.030); UROBILINOGEN URINE 0.2 E.U./dL (0.2-1.0)
[2020-04-28] MEDS ORDERED: CLONIDINE 0.1MG TABLET PO PRN (13:30)
[2020-04-28] MEDS ORDERED: MAGNESIUM/ALUMINUM HYDROXIDE/SIMETHICONE 30ML UDC PO PRN (13:30)
[2020-04-28] MEDS ORDERED: DEXT 5%/0.45% NACL 1000ML 1,000 ML IV SCH (13:30)
[2020-04-28] MEDS ORDERED: FAMOTIDINE 20MG/2ML VIAL IV SCH (13:30)
[2020-04-28] MEDS ORDERED: GUAIFENESIN 200MG/10ML SUGAR FREE UDC PO PRN (13:30)
[2020-04-28] MEDS: AMLODIPINE 10MG TABLET PO SCH (14:00)
[2020-04-28] MEDS: ONDANSETRON HCL 4MG/2ML INJ IV PRN (14:15)
[2020-04-28] MEDS: ACETAMINOPHEN 325MG TABLET PO PRN (14:15)
[2020-04-28] MEDS ORDERED: METOCLOPRAMIDE HCL 10MG/2ML VIAL IV SCH (16:00)
[2020-04-28] MEDS ORDERED: KETOROLAC 15MG/ML VIAL IV PRN (18:00)
[2020-04-28] MEDS ORDERED: SUCRALFATE 1 G/10 ML UDC PO SCH (18:00)
[2020-04-28] MEDS: METOCLOPRAMIDE HCL 10MG/2ML VIAL IV SCH ×2 (18:00→18:30)
[2020-04-28] MEDS: PANTOPRAZOLE SODIUM 40 MG/VIAL IV SCH (18:30)
[2020-04-28 22:15] VITALS: BP 117/78
[2020-04-29] VITALS (7 sets, daily range): BP systolic 106–140; BP diastolic 75–89
[2020-04-29] MEDS ORDERED: SUCRALFATE 1 G/10 ML UDC PO SCH (01:30)
[2020-04-29] MEDS: SUCRALFATE 1 G/10 ML UDC PO SCH ×4 (01:43→18:51)
[2020-04-29] MEDS: METOCLOPRAMIDE HCL 10MG/2ML VIAL IV SCH ×4 (06:38→18:51)
[2020-04-29 06:55] LABS: BASOPHILS % 0.5 % (0.0-2.0); EOSINOPHILS % 1.5 % (0.0-5.0); HEMATOCRIT. 51.8 % (42.0-52.0); HEMOGLOBIN. 17.3 g/dL (14.0-18.0); LYMPHOCYTES % 29.4 % (20.0-50.0); MEAN CORPUSCULAR HEMOGLOBIN 28.6 pg (28.0-32.0); MEAN CORPUSCULAR VOLUME 85.5 fL (80.0-94.0); MEAN PLATELET VOLUME 7.3 fl (7.4-10.4); MONOCYTES % 13.4 % (2.0-8.0); NEUTROPHILS % 55.2 % (40.0-76.0); PLATELET 300 x1000/uL (130-400); RED BLOOD CELL COUNT 6.06 mill/uL (4.7-6.1); RED CELL DISTRIBUTION WIDTH 13.3 % (11.6-14.6)
[2020-04-29 07:13] LABS: CHLORIDE 87 mEq/L (98-107)
[2020-04-29] MEDS ORDERED: ATOR20TA65 PO (08:09)
[2020-04-29] MEDS ORDERED: OMEP40CA12 PO (08:09)
[2020-04-29] MEDS ORDERED: METO-544 PO (08:09)
[2020-04-29] MEDS ORDERED: SUCR1TAB30 PO (08:09)
[2020-04-29] MEDS ORDERED: *PATIENT'S OWN MEDICATION STORAGE XX SCH (08:30)
[2020-04-29] MEDS ORDERED: POTASSIUM CHLORIDE INJ 40 MEQ in DEXT 5% WATER 500 ML IV NR (09:00)
[2020-04-29] MEDS: DEXT 5%/0.45% NACL KCL 20MEQ/L 1,000 ML IV SCH (09:24)
[2020-04-29] MEDS: AMLODIPINE 10MG TABLET PO SCH (09:25)
[2020-04-29] MEDS: PANTOPRAZOLE SODIUM 40 MG/VIAL IV SCH ×2 (09:25→18:51)
[2020-04-29] MEDS: ACETAMINOPHEN 325MG TABLET PO PRN (12:49)
[2020-04-29] MEDS: HYDROMORPHONE HCL/PF 2MG/ML CPJ IV PRN ×2 (16:36→21:09)
[2020-04-29] MEDS ORDERED: KETOROLAC 30MG/ML VIAL IM PRN (18:15)
[2020-04-30] VITALS: BP 120/79
[2020-04-30] MEDS: METOCLOPRAMIDE HCL 10MG/2ML VIAL IV SCH ×4 (00:25→17:33)
[2020-04-30] MEDS: SUCRALFATE 1 G/10 ML UDC PO SCH ×4 (00:25→17:33)
[2020-04-30 04:00] VITALS: BP 108/74
[2020-04-30] MEDS: DEXT 5%/0.45% NACL KCL 20MEQ/L 1,000 ML IV SCH ×2 (06:06→15:26)
[2020-04-30] MEDS: HYDROMORPHONE HCL/PF 2MG/ML CPJ IV PRN ×2 (06:20→17:44)
[2020-04-30 07:18] LABS: BASOPHILS % 0.4 % (0.0-2.0); EOSINOPHILS % 1.5 % (0.0-5.0); HEMOGLOBIN. 17.4 g/dL (14.0-18.0); LYMPHOCYTES % 14.5 % (20.0-50.0); MEAN CORPUSCULAR VOLUME 86.8 fL (80.0-94.0); MEAN PLATELET VOLUME 7.8 fl (7.4-10.4); MONOCYTES % 11.9 % (2.0-8.0); NEUTROPHILS % 71.7 % (40.0-76.0); PLATELET 174 x1000/uL (130-400); RED CELL DISTRIBUTION WIDTH 13.3 % (11.6-14.6)
[2020-04-30 08:00] VITALS: BP 114/80
[2020-04-30 08:01] LABS: CHLORIDE 92 mEq/L (98-107)
[2020-04-30] MEDS: PANTOPRAZOLE SODIUM 40 MG/VIAL IV SCH ×2 (08:54→17:34)
[2020-04-30] MEDS: AMLODIPINE 10MG TABLET PO SCH (08:54)
[2020-04-30] MEDS: POTASSIUM CHLORIDE 20MEQ TABLET SR PO SCH (11:04)
[2020-04-30 12:00] VITALS: BP 110/86
[2020-04-30] MEDS: ONDANSETRON HCL 4MG/2ML INJ IV PRN (15:26)
[2020-04-30 16:00] VITALS: BP 120/86
[2020-04-30 20:00] VITALS: BP 118/88
[2020-05-01] VITALS: BP 115/80
[2020-05-01] MEDS: SUCRALFATE 1 G/10 ML UDC PO SCH ×2 (00:30→05:30)
[2020-05-01] MEDS: METOCLOPRAMIDE HCL 10MG/2ML VIAL IV SCH ×2 (00:30→05:32)
[2020-05-01] MEDS: DEXT 5%/0.45% NACL KCL 20MEQ/L 1,000 ML IV SCH (00:38)
[2020-05-01 04:00] VITALS: BP 117/88
[2020-05-01 08:00] VITALS: BP 102/62
[2020-05-01] MEDS: AMLODIPINE 10MG TABLET PO SCH (09:00)
[2020-05-01] MEDS: POTASSIUM CHLORIDE 20MEQ TABLET SR PO SCH (09:04)
[2020-05-01] MEDS: PANTOPRAZOLE SODIUM 40 MG/VIAL IV SCH (09:05)
[2020-05-01] MEDS: HYDROMORPHONE HCL/PF 2MG/ML CPJ IV PRN (09:06)
[2020-05-01 11:17] VITALS: BP 112/80
[2020-05-01 12:00] VITALS: BP 112/80
[2020-05-20] MEDS ORDERED: TAMS-11 PO (07:46)
[2020-05-20] MEDS ORDERED: AMLO10TA80 PO (07:46)
[2020-05-20] MEDS ORDERED: PANT40TA4 PO (07:46)
[2020-05-21] MEDS ORDERED: TOPUD MT ×2 (16:30→17:07)
[2020-05-21] MEDS ORDERED: OMEP40CA12 MT (17:07)
[2020-05-21] MEDS ORDERED: TAMS-11 PO (17:07)
[2020-05-21] MEDS ORDERED: PANT40SU PO (17:07)
[2020-05-21] MEDS ORDERED: AMLO10TA80 PO (17:07)
[2020-05-21] MEDS ORDERED: ATOR20TA65 MT (17:07)
[2020-05-21] MEDS ORDERED: METO-293 MT (17:07)
== END 2020-05-01 11:55 | disposition home or self-care (01) | DRG 469 ==
LOC: ER 08:18 → 6EST 12:35 → EDBEDREQ 12:58 → ENRESERV 15:20 → CANRESERV 15:20 → EDBEDREQSVC 16:18 → ENRESERV 21:01
PROVIDERS: ADMIT Hospitalist; ATTEND Hospitalist
DX: N17.9 Acute kidney failure, unspecified (principal); R65.10 Systemic inflammatory response syndrome (SIRS) of non-infectious origin without acute organ dysfunction; E87.5 Hyperkalemia; R11.2 Nausea with vomiting, unspecified; F17.210 Nicotine dependence, cigarettes, uncomplicated; I10 Essential (primary) hypertension; E78.5 Hyperlipidemia, unspecified; D72.829 Elevated white blood cell count, unspecified; E87.1 Hypo-osmolality and hyponatremia; E87.6 Hypokalemia; F12.10 Cannabis abuse, uncomplicated; Z82.49 Family history of ischemic heart disease and other diseases of the circulatory system; Z86.718 Personal history of other venous thrombosis and embolism; K29.70 Gastritis, unspecified, without bleeding
CPT/HCPCS: 36415; 74176; 80053; 81003; 85025; 93005; 93970; 99285; C9113; J1170; J1885; J2405; J2765; J3480; J3490; J7030; J7060

== ENCOUNTER 2020-06-03 10:46 | Emergency (ER) | payer MEDICAID ==
[~2020-06-03] VITALS: Ht 177.8 cm; Wt 82.0 kg
[~2020-06-03 10:46] MED LIST changes: +AMLO10TA80 PO; +ATOR20TA65 MT; +ATOR20TA65 PO; +METO-293 MT; +METO-544 PO; +OMEP40CA12 MT; +PANT40SU PO; +PANT40TA4 PO; +SUCR1TAB30 PO; +TAMS-11 PO; +TOPUD MT
[2020-06-03] MEDS ORDERED: SODIUM CHLORIDE 0.9% 1,000 ML IV ONE (11:45)
[2020-06-03] MEDS ORDERED: HALOPERIDOL LACTATE 5MG/ML VIAL IM ONE (11:45)
[2020-06-03] MEDS ORDERED: FAMOTIDINE 20MG/2ML VIAL IV ONE (12:00)
[2020-06-03 12:16] LABS: CHLORIDE 108 mEq/L (98-107)
[2020-06-03 12:17] LABS: BASOPHILS % 0.4 % (0.0-2.0); EOSINOPHILS % 0.3 % (0.0-5.0); HEMATOCRIT. 44.9 % (42.0-52.0); HEMOGLOBIN. 14.5 g/dL (14.0-18.0); LYMPHOCYTES % 11.3 % (20.0-50.0); MEAN CORPUSCULAR HEMOGLOBIN 28.3 pg (28.0-32.0); MEAN CORPUSCULAR VOLUME 87.8 fL (80.0-94.0); MEAN PLATELET VOLUME 6.7 fl (7.4-10.4); MONOCYTES % 3.8 % (2.0-8.0); NEUTROPHILS % 84.2 % (40.0-76.0); PLATELET 449 x1000/uL (130-400); RED BLOOD CELL COUNT 5.12 mill/uL (4.7-6.1); RED CELL DISTRIBUTION WIDTH 13.9 % (11.6-14.6)
[2020-06-03] MEDS ORDERED: MORPHINE SULFATE 4 MG/ML CPJ (NOT FOR IM USE) IV ONE (12:45)
[2020-06-03] MEDS ORDERED: ONDANSETRON HCL 4MG/2ML INJ IV ONE (12:45)
[2020-06-03 14:16] LABS: CLARITY URINE TURBID (CLEAR); COLOR URINE YELLOW (YELLOW); KETONES URINE NEGATIVE (NEGATIVE); LEUKOCYTE ESTERASE URINE TRACE (NEGATIVE); NITRITE URINE NEGATIVE (NEGATIVE); OCCULT BLOOD URINE NEGATIVE (NEGATIVE); PH URINE 8.5 (4.5-8.0); PROTEIN URINE 1+ (NEGATIVE); SPECIFIC GRAVITY URINE 1.022 (1.005-1.030); UROBILINOGEN URINE 0.2 E.U./dL (0.2-1.0)
[2020-06-03] MEDS ORDERED: MAGNESIUM/ALUMINUM HYDROXIDE/SIMETHICONE 30ML UDC PO STA (15:35)
[2020-06-03] MEDS ORDERED: VISCOUS LIDOCAINE 2% 15 ML UDC PO STA (15:35)
[2020-06-03] MEDS ORDERED: METOCLOPRAMIDE HCL 10MG/2ML VIAL IV STA (15:35)
[2020-06-03 16:48] LABS: CHLORIDE 109 mEq/L (98-107)
[2020-06-03 17:02] VITALS: BP 151/98
== END 2020-06-03 17:03 | disposition home or self-care (01) ==
LOC: ER 10:46
DX: R10.13 Epigastric pain (principal); R11.2 Nausea with vomiting, unspecified; K29.70 Gastritis, unspecified, without bleeding; I10 Essential (primary) hypertension; E78.00 Pure hypercholesterolemia, unspecified; N40.0 Benign prostatic hyperplasia without lower urinary tract symptoms
CPT/HCPCS: 36415; 71045; 80048; 80053; 81003; 83690; 85025; 93005; 96361; 96372; 96374; 96375; 99285; J1630; J2270; J2405; J2765; J3490; J7030; Z7610

== ENCOUNTER 2020-07-03 08:05 | Emergency (ER) | payer MEDICAID ==
[~2020-07-03] VITALS: Ht 177.8 cm; Wt 70.0 kg
[~2020-07-03 08:05] MED LIST changes: -PANT40TA4 PO; +PANT40TA51 PO
[2020-07-03] MEDS ORDERED: ONDANSETRON HCL 4MG/2ML INJ IV STA (09:05)
[2020-07-03] MEDS ORDERED: KETOROLAC 30MG/ML VIAL IV STA (09:05)
[2020-07-03] MEDS ORDERED: SODIUM CHLORIDE 0.9% 1,000 ML IV ONE (09:15)
[2020-07-03 14:06] LABS: BASOPHILS % 0.4 % (0.0-2.0); EOSINOPHILS % 0.4 % (0.0-5.0); HEMOGLOBIN. 18.3 g/dL (14.0-18.0); MEAN CORPUSCULAR VOLUME 85.8 fL (80.0-94.0); MEAN PLATELET VOLUME 7.8 fl (7.4-10.4); MONOCYTES % 10.8 % (2.0-8.0); NEUTROPHILS % 68.4 % (40.0-76.0); PLATELET 401 x1000/uL (130-400); RED BLOOD CELL COUNT 6.52 mill/uL (4.7-6.1); RED CELL DISTRIBUTION WIDTH 13.7 % (11.6-14.6)
[2020-07-03 14:16] LABS: INR 1.1; PROTHROMBIN TIME 11.6 sec (9.6-11.0)
[2020-07-03 14:18] LABS: CHLORIDE 90 mEq/L (98-107)
[2020-07-03] MEDS ORDERED: VISCOUS LIDOCAINE 2% 15 ML UDC PO STA (14:36)
[2020-07-03] MEDS ORDERED: DICYCLOMINE 10 MG/5 ML ORAL SYR PO STA (14:36)
[2020-07-03] MEDS ORDERED: MAGNESIUM/ALUMINUM HYDROXIDE/SIMETHICONE 30ML UDC PO STA (14:36)
[2020-07-03] MEDS ORDERED: ONDA4TAB5 MT (14:39)
[2020-07-03] MEDS ORDERED: OMEP40CA12 MT (14:39)
[2020-07-03] MEDS ORDERED: POTASSIUM CHLORIDE 20MEQ/PACKET PO ONE (14:45)
[2020-07-03] MEDS ORDERED: ONDANSETRON 4MG ODT PO ONE (14:45)
[2020-07-03 15:45] VITALS: BP 128/81
== END 2020-07-03 15:49 | disposition home or self-care (01) ==
LOC: ER 08:11
DX: R10.33 Periumbilical pain (principal); E87.6 Hypokalemia; R11.2 Nausea with vomiting, unspecified; I10 Essential (primary) hypertension; E78.00 Pure hypercholesterolemia, unspecified; N40.0 Benign prostatic hyperplasia without lower urinary tract symptoms
CPT/HCPCS: 36415; 74176; 80053; 83690; 85025; 85610; 93005; 96361; 96374; 96375; 99285; J1885; J2405; J7030; Q0162; Z7610

== ENCOUNTER 2020-08-18 10:54 | Emergency (ER) | payer MEDICAID ==
[~2020-08-18] VITALS: Ht 177.8 cm; Wt 70.0 kg
[~2020-08-18 10:54] MED LIST changes: +ONDA4TAB5 MT
[2020-08-18] MEDS ORDERED: ONDANSETRON HCL 4MG/2ML INJ IV STA (11:51)
[2020-08-18] MEDS ORDERED: KETOROLAC 30MG/ML VIAL IV STA (11:51)
[2020-08-18] MEDS ORDERED: SODIUM CHLORIDE 0.9% 1,000 ML IV ONE (12:00)
[2020-08-18 12:17] LABS: BASOPHILS % 0.6 % (0.0-2.0); HEMOGLOBIN. 16.4 g/dL (14.0-18.0); LYMPHOCYTES % 9.6 % (20.0-50.0); MEAN CORPUSCULAR HEMOGLOBIN 28.8 pg (28.0-32.0); MEAN PLATELET VOLUME 7.3 fl (7.4-10.4); MONOCYTES % 9.2 % (2.0-8.0); NEUTROPHILS % 80.6 % (40.0-76.0); PLATELET 384 x1000/uL (130-400); RED CELL DISTRIBUTION WIDTH 13.8 % (11.6-14.6)
[2020-08-18 12:23] LABS: CHLORIDE 94 mEq/L (98-107)
[2020-08-18 12:27] LABS: ETHANOL BLOOD < 10 mg/dL; INR 1.1; PROTHROMBIN TIME 11.9 sec (9.6-11.0)
[2020-08-18] MEDS ORDERED: ONDA4TAB5 MT (16:23)
[2020-08-18 16:48] VITALS: BP 118/91
[2020-08-20] MEDS ORDERED: OMEP20TA15 PO (18:56)
== END 2020-08-18 16:52 | disposition home or self-care (01) ==
LOC: ER 10:54
DX: R10.9 Unspecified abdominal pain (principal); R11.2 Nausea with vomiting, unspecified; E78.00 Pure hypercholesterolemia, unspecified; I10 Essential (primary) hypertension
CPT/HCPCS: 36415; 74176; 80053; 80320; 83690; 85025; 85610; 93005; 96361; 96374; 96375; 99285; J1885; J2405; J7030; G0480

== ENCOUNTER 2020-09-19 14:26 | Emergency (ER) | payer MEDICAID ==
[~2020-09-19] VITALS: Ht 177.8 cm; Wt 72.0 kg
[~2020-09-19 14:26] MED LIST changes: +OMEP20TA15 PO
[2020-09-19] MEDS ORDERED: FAMOTIDINE 20MG/2ML VIAL IV STA (16:18)
[2020-09-19] MEDS ORDERED: MAGNESIUM/ALUMINUM HYDROXIDE/SIMETHICONE 30ML UDC PO STA (16:18)
[2020-09-19] MEDS ORDERED: VISCOUS LIDOCAINE 2% 15 ML UDC PO STA (16:18)
[2020-09-19] MEDS ORDERED: SODIUM CHLORIDE 0.9% 1,000 ML IV ONE (16:30)
[2020-09-19] MEDS ORDERED: ONDANSETRON HCL 4MG/2ML INJ IV ONE (16:30)
[2020-09-19 17:00] LABS: BASOPHILS % 0.4 % (0.0-2.0); HEMATOCRIT. 49.6 % (42.0-52.0); HEMOGLOBIN. 16.4 g/dL (14.0-18.0); LYMPHOCYTES % 10.3 % (20.0-50.0); MEAN CORPUSCULAR HEMOGLOBIN 28.3 pg (28.0-32.0); MEAN CORPUSCULAR VOLUME 85.8 fL (80.0-94.0); MEAN PLATELET VOLUME 7.1 fl (7.4-10.4); MONOCYTES % 9.2 % (2.0-8.0); NEUTROPHILS % 80.1 % (40.0-76.0); PLATELET 428 x1000/uL (130-400); RED BLOOD CELL COUNT 5.78 mill/uL (4.7-6.1); RED CELL DISTRIBUTION WIDTH 13.5 % (11.6-14.6)
[2020-09-19 17:06] LABS: CHLORIDE 95 mEq/L (98-107)
[2020-09-19] MEDS ORDERED: POTASSIUM CHLORIDE 20MEQ TABLET SR PO NR (19:30)
[2020-09-19] MEDS ORDERED: MAG-55 MT (19:31)
[2020-09-19] MEDS ORDERED: ONDA4TAB50 MT (19:31)
[2020-09-19] MEDS ORDERED: FAMO-123 PO (19:31)
[2020-09-19 20:27] VITALS: BP 129/91
== END 2020-09-19 20:29 | disposition home or self-care (01) ==
LOC: ER 14:26
DX: K29.70 Gastritis, unspecified, without bleeding (principal); E78.00 Pure hypercholesterolemia, unspecified; I10 Essential (primary) hypertension; F17.290 Nicotine dependence, other tobacco product, uncomplicated; F12.10 Cannabis abuse, uncomplicated; Z79.899 Other long term (current) drug therapy
CPT/HCPCS: 36415; 80053; 83690; 85025; 93005; 96361; 96374; 96375; 99284; J2405; J3490; J7030; Z7610

== ENCOUNTER 2020-10-09 07:56 | Emergency (ER) | payer MEDICAID ==
[~2020-10-09] VITALS: Ht 177.8 cm; Wt 69.0 kg
[~2020-10-09 07:56] MED LIST changes: +FAMO-123 PO; +MAG-55 MT; +ONDA4TAB50 MT
[2020-10-09] MEDS ORDERED: MORPHINE SULFATE 4 MG/ML CPJ (NOT FOR IM USE) IV STA (08:34)
[2020-10-09] MEDS ORDERED: FAMOTIDINE 20MG/2ML VIAL IV STA (08:34)
[2020-10-09] MEDS ORDERED: ONDANSETRON HCL 4MG/2ML INJ IV STA (08:34)
[2020-10-09] MEDS ORDERED: SODIUM CHLORIDE 0.9% 1,000 ML IV ONE (08:45)
[2020-10-09 09:29] LABS: BASOPHILS % 0.8 % (0.0-2.0); EOSINOPHILS % 1.5 % (0.0-5.0); HEMOGLOBIN. 15.6 g/dL (14.0-18.0); MEAN CORPUSCULAR VOLUME 87.2 fL (80.0-94.0); MEAN PLATELET VOLUME 6.5 fl (7.4-10.4); MONOCYTES % 7.6 % (2.0-8.0); NEUTROPHILS % 65.1 % (40.0-76.0); PLATELET 453 x1000/uL (130-400); RED BLOOD CELL COUNT 5.39 mill/uL (4.7-6.1); RED CELL DISTRIBUTION WIDTH 13.4 % (11.6-14.6)
[2020-10-09 09:36] LABS: CHLORIDE 106 mEq/L (98-107)
[2020-10-09 09:41] LABS: ETHANOL BLOOD < 10 mg/dL; INR 1.2; PROTHROMBIN TIME 12.6 sec (9.6-11.0)
[2020-10-09] MEDS ORDERED: FAMO40TA70 MT (11:29)
[2020-10-09] MEDS ORDERED: ONDA4TAB5 MT (11:29)
[2020-10-09] MEDS ORDERED: METOCLOPRAMIDE HCL 10MG/2ML VIAL IV ONE (11:45)
[2020-10-09 12:42] VITALS: BP 142/95
== END 2020-10-09 12:43 | disposition home or self-care (01) ==
LOC: ER 07:56
DX: K29.70 Gastritis, unspecified, without bleeding (principal); F17.200 Nicotine dependence, unspecified, uncomplicated; E78.00 Pure hypercholesterolemia, unspecified; I10 Essential (primary) hypertension; Z71.6 Tobacco abuse counseling
CPT/HCPCS: 36415; 80053; 80320; 83690; 85025; 85610; 93005; 96374; 96375; 99284; 99406; J2270; J2405; J2765; J3490; J7030; Z7610; G0480

== ENCOUNTER 2020-12-23 23:26 | Inpatient (IN) | payer MEDICAID ==
[~2020-12-23] VITALS: Ht 182.9 cm; Wt 74.8 kg
[~2020-12-23 23:26] MED LIST changes: -ATOR20TA65 PO; -METO-544 PO; -OMEP20TA15 PO; -OMEP40CA12 PO; -ONDA4TAB5 MT; -PANT40SU PO
[2020-12-23] MEDS ORDERED: ONDANSETRON HCL 4MG/2ML INJ IV STA (23:35)
[2020-12-23] MEDS ORDERED: SODIUM CHLORIDE 0.9% 1,000 ML IV ONE (23:45)
[2020-12-24 01:04] LABS: BASOPHILS % 0.1 % (0.0-2.0); EOSINOPHILS % 0.1 % (0.0-5.0); HEMATOCRIT. 50.3 % (42.0-52.0); HEMOGLOBIN. 17.2 g/dL (14.0-18.0); MEAN CORPUSCULAR HEMOGLOBIN 28.3 pg (28.0-32.0); MEAN PLATELET VOLUME 7.3 fl (7.4-10.4); MONOCYTES % 9.6 % (2.0-8.0); NEUTROPHILS % 78.2 % (40.0-76.0); PLATELET 446 x1000/uL (130-400); RED BLOOD CELL COUNT 6.06 mill/uL (4.7-6.1); RED CELL DISTRIBUTION WIDTH 14.3 % (11.6-14.6)
[2020-12-24 01:14] LABS: CHLORIDE 90 mEq/L (98-107)
[2020-12-24 01:18] LABS: ETHANOL BLOOD < 10 mg/dL
[2020-12-24 01:23] LABS: CLARITY URINE CLOUDY (CLEAR); COLOR URINE DARK YELLOW (YELLOW); KETONES URINE 1+ (NEGATIVE); LEUKOCYTE ESTERASE URINE NEGATIVE (NEGATIVE); NITRITE URINE NEGATIVE (NEGATIVE); OCCULT BLOOD URINE 2+ (NEGATIVE); PH URINE 5.5 (4.5-8.0); PROTEIN URINE 3+ (NEGATIVE); SPECIFIC GRAVITY URINE 1.033 (1.005-1.030)
[2020-12-24] MEDS ORDERED: POTASSIUM CHLORIDE 20MEQ TABLET SR PO ONE (01:30)
[2020-12-24] MEDS ORDERED: POTASSIUM CHLORIDE INJ 40 MEQ in DEXT 5% WATER 500 ML IV ONE (01:30)
[2020-12-24] MEDS ORDERED: KETOROLAC 30MG/ML VIAL IV STA (01:48)
[2020-12-24 01:51] LABS: *AMPHETAMINES SCREEN URINE NEGATIVE (NEGATIVE); *BARBITURATES SCREEN URINE NEGATIVE (NEGATIVE); *BENZODIAZEPINES SCREEN URINE NEGATIVE (NEGATIVE); *COCAINE SCREEN URINE NEGATIVE (NEGATIVE)
[2020-12-24 01:52] LABS: CANNABINOID URINE SCREEN PRESUMTIVE POSITIVE (NEGATIVE); METHADONE URINE SCREEN NEGATIVE (NEGATIVE); OPIATES URINE SCREEN NEGATIVE (NEGATIVE); PHENCYCLIDINE URINE SCREEN NEGATIVE (NEGATIVE)
[2020-12-24] MEDS ORDERED: SODIUM CHLORIDE 0.9% 1,000 ML IV ONE (02:00)
[2020-12-24] MEDS ORDERED: ONDANSETRON HCL 4MG/2ML INJ IV ONE (02:00)
[2020-12-24 05:20] VITALS: BP 162/116
[2020-12-24 06:08] VITALS: BP 162/116
[2020-12-24] MEDS ORDERED: DOCUSATE SODIUM 100MG CAPSULE PO PRN (06:45)
[2020-12-24] MEDS ORDERED: MAGNESIUM/ALUMINUM HYDROXIDE/SIMETHICONE 30ML UDC PO PRN (06:45)
[2020-12-24] MEDS ORDERED: CLONIDINE 0.1MG TABLET PO PRN (06:45)
[2020-12-24] MEDS ORDERED: ZOLPIDEM TARTRATE 5MG TABLET PO PRN (06:45)
[2020-12-24] MEDS ORDERED: ACETAMINOPHEN 325MG TABLET PO PRN ×2 (06:45)
[2020-12-24] MEDS ORDERED: GUAIFENESIN 200MG/10ML SUGAR FREE UDC PO PRN (06:45)
[2020-12-24] MEDS ORDERED: IPRATROPIUM/ALBUTEROL 0.5-3(2.5)MG/3ML NEB NEB PRN (06:45)
[2020-12-24] MEDS ORDERED: NITROGLYCERIN 0.4MG TABLET SL SL PRN (06:45)
[2020-12-24 08:00] VITALS: BP 132/100
[2020-12-24] MEDS: METOCLOPRAMIDE 10MG/10 ML UDC PO SCH ×4 (08:13→21:56)
[2020-12-24 08:53] LABS: PHOSPHORUS 3.1 mg/dL (2.5-4.9)
[2020-12-24 08:57] LABS: T4 FREE 1.36 ng/dL (0.76-1.46)
[2020-12-24] MEDS: PANTOPRAZOLE SODIUM 40 MG/VIAL IV SCH (10:06)
[2020-12-24] MEDS: AMLODIPINE 10MG TABLET PO SCH (10:06)
[2020-12-24] MEDS: ENOXAPARIN 40MG/0.4ML SYR SUBCUT SCH (10:07)
[2020-12-24] MEDS: ONDANSETRON HCL 4MG/2ML INJ IV PRN (10:08)
[2020-12-24 12:00] VITALS: BP 121/83
[2020-12-24] MEDS ORDERED: HALOPERIDOL LACTATE 5MG/ML VIAL IM NR (12:15)
[2020-12-24] MEDS: KETOROLAC 15MG/ML VIAL IV PRN (12:58)
[2020-12-24 16:00] VITALS: BP 105/70
[2020-12-24 16:20] LABS: VITAMIN B12 SERUM 469 pg/mL (211-911)
[2020-12-24 16:56] LABS: FOLIC ACID (FOLATE) SERUM > 20.00 ng/mL (>5.38)
[2020-12-24] MEDS: CHLORPROMAZINE HCL 25MG/1ML AMP IM PRN (17:58)
[2020-12-24 20:00] VITALS: BP 108/76
[2020-12-25] VITALS: BP 115/75
[2020-12-25 04:00] VITALS: BP 117/87
[2020-12-25] MEDS: METOCLOPRAMIDE 10MG/10 ML UDC PO SCH ×4 (06:16→20:42)
[2020-12-25] MEDS: ONDANSETRON HCL 4MG/2ML INJ IV PRN (06:57)
[2020-12-25] MEDS: KETOROLAC 15MG/ML VIAL IV PRN ×2 (07:06→18:01)
[2020-12-25 07:48] LABS: BASOPHILS % 0.4 % (0.0-2.0); EOSINOPHILS % 1.1 % (0.0-5.0); HEMOGLOBIN. 16.3 g/dL (14.0-18.0); LYMPHOCYTES % 25.8 % (20.0-50.0); MEAN CORPUSCULAR HEMOGLOBIN 28.3 pg (28.0-32.0); MEAN CORPUSCULAR VOLUME 85.1 fL (80.0-94.0); MONOCYTES % 10.7 % (2.0-8.0); RED BLOOD CELL COUNT 5.75 mill/uL (4.7-6.1); RED CELL DISTRIBUTION WIDTH 14.2 % (11.6-14.6)
[2020-12-25 07:55] LABS: CHLORIDE 95 mEq/L (98-107)
[2020-12-25 08:00] VITALS: BP 142/104
[2020-12-25 08:13] LABS: PHOSPHORUS 3.3 mg/dL (2.5-4.9)
[2020-12-25] MEDS: PANTOPRAZOLE SODIUM 40 MG/VIAL IV SCH (09:45)
[2020-12-25] MEDS: ENOXAPARIN 40MG/0.4ML SYR SUBCUT SCH (09:46)
[2020-12-25] MEDS: AMLODIPINE 10MG TABLET PO SCH (09:46)
[2020-12-25 10:52] LABS: PLATELET ESTIMATE NORMAL
[2020-12-25 10:53] LABS: MEAN PLATELET VOLUME 7.5 fl (7.4-10.4); PLATELET 328 x1000/uL (130-400)
[2020-12-25 12:00] VITALS: BP 137/95
[2020-12-25 16:00] VITALS: BP 115/82
[2020-12-25 20:00] VITALS: BP 120/85
[2020-12-25] MEDS ORDERED: POTASSIUM CHLORIDE INJ 40 MEQ in DEXT 5% WATER 500 ML IV NR (21:00)
[2020-12-26] VITALS: BP 118/76
[2020-12-26 04:00] VITALS: BP 125/80
[2020-12-26] MEDS: METOCLOPRAMIDE 10MG/10 ML UDC PO SCH ×4 (05:48→20:29)
[2020-12-26] MEDS: ONDANSETRON HCL 4MG/2ML INJ IV PRN ×2 (05:50→10:58)
[2020-12-26 08:00] VITALS: BP 132/98
[2020-12-26] MEDS: ENOXAPARIN 40MG/0.4ML SYR SUBCUT SCH (09:26)
[2020-12-26] MEDS: AMLODIPINE 10MG TABLET PO SCH (09:26)
[2020-12-26] MEDS: FAMOTIDINE 20MG/2ML VIAL IV SCH ×2 (09:26→20:29)
[2020-12-26 12:00] VITALS: BP 138/98
[2020-12-26] MEDS: KETOROLAC 15MG/ML VIAL IV PRN (14:50)
[2020-12-26 16:00] VITALS: BP 148/114
[2020-12-26] MEDS: CHLORPROMAZINE HCL 25MG/1ML AMP IM PRN (17:41)
[2020-12-26 20:00] VITALS: BP 130/90
[2020-12-27] VITALS: BP 117/88
[2020-12-27 04:00] VITALS: BP 111/73
[2020-12-27] MEDS: CHLORPROMAZINE HCL 25MG/1ML AMP IM PRN ×2 (07:33→18:13)
[2020-12-27] MEDS: METOCLOPRAMIDE 10MG/10 ML UDC PO SCH ×4 (07:33→20:22)
[2020-12-27] MEDS: KETOROLAC 15MG/ML VIAL IV PRN ×2 (07:33→20:23)
[2020-12-27 08:00] VITALS: BP 120/89
[2020-12-27] MEDS: FAMOTIDINE 20MG/2ML VIAL IV SCH (08:44)
[2020-12-27] MEDS: ENOXAPARIN 40MG/0.4ML SYR SUBCUT SCH (08:44)
[2020-12-27] MEDS: AMLODIPINE 10MG TABLET PO SCH (08:44)
[2020-12-27 12:00] VITALS: BP 118/88
[2020-12-27 16:00] VITALS: BP_SYST 108; BP_DIAS 69; BP_DIAS 81
[2020-12-27 16:34] LABS: CHLORIDE 93 mEq/L (98-107)
[2020-12-27 20:00] VITALS: BP 116/77
[2020-12-27] MEDS ORDERED: POTASSIUM CHLORIDE 20MEQ TABLET SR PO NR (20:00)
[2020-12-27] MEDS ORDERED: POTASSIUM CHLORIDE INJ 40 MEQ in DEXT 5% WATER 500 ML IV NR (20:00)
[2020-12-27] MEDS: FAMOTIDINE 20MG TABLET PO SCH (20:22)
[2020-12-28 00:27] VITALS: BP 102/77
[2020-12-28 04:00] VITALS: BP 115/85
[2020-12-28] MEDS: KETOROLAC 15MG/ML VIAL IV PRN (04:01)
[2020-12-28] MEDS: CHLORPROMAZINE HCL 25MG/1ML AMP IM PRN (04:01)
[2020-12-28 06:05] LABS: CHLORIDE 97 mEq/L (98-107)
[2020-12-28 08:00] VITALS: BP 93/74
[2020-12-28] MEDS: METOCLOPRAMIDE 10MG/10 ML UDC PO SCH ×2 (08:00→13:20)
[2020-12-28] MEDS: AMLODIPINE 10MG TABLET PO SCH (08:50)
[2020-12-28] MEDS: ENOXAPARIN 40MG/0.4ML SYR SUBCUT SCH (08:56)
[2020-12-28] MEDS: FAMOTIDINE 20MG TABLET PO SCH (08:56)
[2020-12-28 14:50] VITALS: BP 100/50
[2020-12-28 16:00] VITALS: BP 100/50
== END 2020-12-28 16:55 | disposition home or self-care (01) | DRG 251 ==
LOC: ER 23:52 → 6EST 12-24 04:02 → ENRESERV 12-24 04:56
PROVIDERS: ADMIT Internal Medicine; ATTEND Internal Medicine
DX: R10.9 Unspecified abdominal pain (principal); E87.1 Hypo-osmolality and hyponatremia; E78.00 Pure hypercholesterolemia, unspecified; R11.2 Nausea with vomiting, unspecified; F12.19 Cannabis abuse with unspecified cannabis-induced disorder; E87.6 Hypokalemia; I10 Essential (primary) hypertension; N40.0 Benign prostatic hyperplasia without lower urinary tract symptoms; Z79.1 Long term (current) use of non-steroidal anti-inflammatories (NSAID); Z79.899 Other long term (current) drug therapy; Z82.49 Family history of ischemic heart disease and other diseases of the circulatory system
CPT/HCPCS: 36415; 74176; 80048; 80053; 80305; 80320; 81003; 82607; 82746; 83036; 83540; 83550; 83735; 84100; 84439; 84443; 85025; 93005; 93970; 99285; C9113; J1630; J1650; J1885; J2405; J3230; J3480; J3490; J7030; J7060; J8597; G0480

== ENCOUNTER 2020-12-30 05:19 | Emergency (ER) | payer MEDICAID ==
[~2020-12-30] VITALS: Ht 175.3 cm; Wt 73.0 kg
[2020-12-30] MEDS ORDERED: DICYCLOMINE 10 MG/5 ML ORAL SYR PO STA (06:07)
[2020-12-30] MEDS ORDERED: MORPHINE SULFATE 4 MG/ML CPJ (NOT FOR IM USE) IV STA (06:07)
[2020-12-30] MEDS ORDERED: MAGNESIUM/ALUMINUM HYDROXIDE/SIMETHICONE 30ML UDC PO STA (06:07)
[2020-12-30] MEDS ORDERED: ONDANSETRON HCL 4MG/2ML INJ IV STA (06:07)
[2020-12-30] MEDS ORDERED: VISCOUS LIDOCAINE 2% 15 ML UDC PO STA (06:07)
[2020-12-30 06:32] LABS: BASOPHILS % 0.3 % (0.0-2.0); EOSINOPHILS % 0.3 % (0.0-5.0); HEMOGLOBIN. 15.7 g/dL (14.0-18.0); MEAN CORPUSCULAR VOLUME 83.9 fL (80.0-94.0); MEAN PLATELET VOLUME 7.2 fl (7.4-10.4); MONOCYTES % 9.7 % (2.0-8.0); NEUTROPHILS % 76.7 % (40.0-76.0); PLATELET 462 x1000/uL (130-400); RED CELL DISTRIBUTION WIDTH 13.6 % (11.6-14.6)
[2020-12-30 06:34] LABS: CHLORIDE 92 mEq/L (98-107)
[2020-12-30 06:37] LABS: INR 1.1; PROTHROMBIN TIME 11.7 sec (9.6-11.0)
[2020-12-30] MEDS ORDERED: IOHEXOL-300 100 ML BOTTLE ONE (06:55)
[2020-12-30] MEDS ORDERED: MORPHINE SULFATE 4 MG/ML CPJ (NOT FOR IM USE) IV ONE (08:15)
[2020-12-30] MEDS ORDERED: ONDA4TAB5 PO (08:53)
[2020-12-30] MEDS ORDERED: TOPUD PO (08:53)
[2020-12-30 09:30] VITALS: BP 122/86
== END 2020-12-30 10:00 | disposition home or self-care (01) ==
LOC: ER 05:19
DX: R10.9 Unspecified abdominal pain (principal); F17.210 Nicotine dependence, cigarettes, uncomplicated; Z71.6 Tobacco abuse counseling
CPT/HCPCS: 36415; 74177; 80053; 83690; 85025; 85610; 93005; 96374; 96375; 96376; 99285; 99406; J2270; J2405; Q9967; Z7610

== ENCOUNTER 2021-01-01 09:47 | Emergency (ER) | payer MEDICAID ==
[~2021-01-01] VITALS: Ht 177.8 cm; Wt 68.0 kg
[~2021-01-01 09:47] MED LIST changes: +ONDA4TAB5 PO; +TOPUD PO
[2021-01-01 09:54] VITALS: BP 123/92
[2021-01-01] MEDS ORDERED: MAGNESIUM/ALUMINUM HYDROXIDE/SIMETHICONE 30ML UDC PO STA (10:04)
[2021-01-01 12:01] LABS: BASOPHILS % 0.6 % (0.0-2.0); EOSINOPHILS % 0.6 % (0.0-5.0); HEMATOCRIT. 48.1 % (42.0-52.0); HEMOGLOBIN. 16.6 g/dL (14.0-18.0); LYMPHOCYTES % 29.4 % (20.0-50.0); MEAN CORPUSCULAR HEMOGLOBIN 28.6 pg (28.0-32.0); MONOCYTES % 14.8 % (2.0-8.0); NEUTROPHILS % 54.6 % (40.0-76.0); PLATELET 586 x1000/uL (130-400); RED BLOOD CELL COUNT 5.79 mill/uL (4.7-6.1); RED CELL DISTRIBUTION WIDTH 13.7 % (11.6-14.6)
[2021-01-01 12:07] LABS: CHLORIDE 88 mEq/L (98-107)
[2021-01-01 12:11] LABS: ETHANOL BLOOD < 10 mg/dL
[2021-01-01] MEDS ORDERED: ONDANSETRON 4MG ODT PO ONE (12:15)
[2021-01-01] MEDS ORDERED: ONDA4TAB5 MT (12:29)
[2021-01-01] MEDS ORDERED: POTASSIUM CHLORIDE 20MEQ TABLET SR PO ONE (12:30)
[2021-01-01] MEDS ORDERED: CHLORDIAZEPOXIDE 25MG CAPSULE PO ONE (12:30)
[2021-01-01] MEDS ORDERED: CHLORDIAZEPOXIDE 5 MG CAPSULE PO SCH (12:45)
== END 2021-01-01 12:35 | disposition home or self-care (01) ==
LOC: ER 09:47
DX: R10.9 Unspecified abdominal pain (principal); E87.6 Hypokalemia
CPT/HCPCS: 36415; 80053; 80320; 83690; 85025; 93005; 99284; Q0162; G0480

== ENCOUNTER 2021-01-03 05:44 | Inpatient (IN) | payer MEDICAID ==
[~2021-01-03] VITALS: Ht 177.8 cm; Wt 62.3 kg
[~2021-01-03 05:44] MED LIST changes: +ONDA4TAB5 MT
[2021-01-03] MEDS ORDERED: ONDANSETRON HCL 4MG/2ML INJ IV STA (06:45)
[2021-01-03] MEDS ORDERED: MORPHINE SULFATE 4 MG/ML CPJ (NOT FOR IM USE) IV STA (06:45)
[2021-01-03] MEDS ORDERED: SODIUM CHLORIDE 0.9% 1,000 ML IV ONE (06:45)
[2021-01-03] MEDS ORDERED: ACETAMINOPHEN 325MG TABLET PO ONE (06:45)
[2021-01-03 09:11] LABS: BASOPHILS % 0.5 % (0.0-2.0); EOSINOPHILS % 0.5 % (0.0-5.0); HEMATOCRIT. 41.4 % (42.0-52.0); HEMOGLOBIN. 14.3 g/dL (14.0-18.0); LYMPHOCYTES % 24.7 % (20.0-50.0); MEAN CORPUSCULAR HEMOGLOBIN 28.7 pg (28.0-32.0); MEAN PLATELET VOLUME 6.6 fl (7.4-10.4); MONOCYTES % 9.9 % (2.0-8.0); NEUTROPHILS % 64.4 % (40.0-76.0); PLATELET 535 x1000/uL (130-400); RED BLOOD CELL COUNT 4.98 mill/uL (4.7-6.1); RED CELL DISTRIBUTION WIDTH 13.3 % (11.6-14.6)
[2021-01-03 09:15] LABS: CHLORIDE 90 mEq/L (98-107)
[2021-01-03 09:18] LABS: INR 1.1; PROTHROMBIN TIME 11.5 sec (9.6-11.0)
[2021-01-03] MEDS ORDERED: POTASSIUM CHLORIDE 20MEQ TABLET SR PO ONE (10:00)
[2021-01-03] MEDS ORDERED: LIDOCAINE HCL 1% 20ML VIAL (Pyxis) INJ ONE (11:23)
[2021-01-03] MEDS ORDERED: IPRATROPIUM/ALBUTEROL 0.5-3(2.5)MG/3ML NEB HHN PRN (11:45)
[2021-01-03] MEDS ORDERED: ACETAMINOPHEN 325MG TABLET PO PRN ×2 (11:45)
[2021-01-03] MEDS ORDERED: NA PHOS,M-B/NA PHOS,DI-BA ENEMA 118ML PR PRN (11:45)
[2021-01-03] MEDS ORDERED: ZOLPIDEM TARTRATE 5MG TABLET PO PRN (11:45)
[2021-01-03] MEDS ORDERED: GUAIFENESIN 200MG/10ML SUGAR FREE UDC PO PRN (11:45)
[2021-01-03] MEDS ORDERED: CLONIDINE 0.1MG TABLET PO PRN (11:45)
[2021-01-03] MEDS: SODIUM CHLORIDE 0.9% 1,000 ML IV SCH (11:45)
[2021-01-03] MEDS ORDERED: MAGNESIUM/ALUMINUM HYDROXIDE/SIMETHICONE 30ML UDC PO PRN (11:45)
[2021-01-03] MEDS: KETOROLAC 15MG/ML VIAL IV PRN ×2 (12:31→18:46)
[2021-01-03] MEDS: METOCLOPRAMIDE HCL 10MG TABLET PO SCH ×2 (12:50→17:28)
[2021-01-03] MEDS: ENOXAPARIN 40MG/0.4ML SYR SUBCUT SCH (13:46)
[2021-01-03 15:46] LABS: *AMPHETAMINES SCREEN URINE NEGATIVE (NEGATIVE); *BENZODIAZEPINES SCREEN URINE NEGATIVE (NEGATIVE)
[2021-01-03 15:49] LABS: METHADONE URINE SCREEN NEGATIVE (NEGATIVE); OPIATES URINE SCREEN NEGATIVE (NEGATIVE)
[2021-01-03 15:52] LABS: *COCAINE SCREEN URINE NEGATIVE (NEGATIVE)
[2021-01-03 15:53] LABS: *BARBITURATES SCREEN URINE NEGATIVE (NEGATIVE)
[2021-01-03 15:55] LABS: PHENCYCLIDINE URINE SCREEN NEGATIVE (NEGATIVE)
[2021-01-03 15:56] LABS: CANNABINOID URINE SCREEN PRESUMTIVE POSITIVE (NEGATIVE)
[2021-01-03] MEDS: ONDANSETRON HCL 4MG/2ML INJ IV PRN (18:47)
[2021-01-03 20:45] LABS: CREATINE KINASE 337 IU/L (39-308)
[2021-01-03 20:46] LABS: CREATINE KINASE MB FRACTION 2.2 ng/mL (0.5-3.6)
[2021-01-03] MEDS: FAMOTIDINE 20MG TABLET PO SCH (22:04)
[2021-01-04] VITALS (13 sets, daily range): BP systolic 104–145; BP diastolic 68–95
[2021-01-04] MEDS: KETOROLAC 15MG/ML VIAL IV PRN ×3 (02:20→21:55)
[2021-01-04] MEDS: SODIUM CHLORIDE 0.9% 1,000 ML IV SCH ×2 (02:21→16:43)
[2021-01-04] MEDS: METOCLOPRAMIDE HCL 10MG TABLET PO SCH ×3 (06:24→16:43)
[2021-01-04] MEDS: FAMOTIDINE 20MG TABLET PO SCH ×2 (08:36→21:55)
[2021-01-04] MEDS: ENOXAPARIN 40MG/0.4ML SYR SUBCUT SCH (08:36)
[2021-01-04] MEDS: DOCUSATE SODIUM 100MG CAPSULE PO PRN ×2 (08:36→16:43)
[2021-01-04] MEDS: ONDANSETRON HCL 4MG/2ML INJ IV PRN (08:56)
[2021-01-04 10:17] LABS: BASOPHILS % 0.5 % (0.0-2.0); EOSINOPHILS % 1.1 % (0.0-5.0); HEMATOCRIT. 40.3 % (42.0-52.0); HEMOGLOBIN. 13.5 g/dL (14.0-18.0); LYMPHOCYTES % 21.4 % (20.0-50.0); MEAN CORPUSCULAR HEMOGLOBIN 27.9 pg (28.0-32.0); MEAN CORPUSCULAR VOLUME 83.5 fL (80.0-94.0); MEAN PLATELET VOLUME 6.8 fl (7.4-10.4); MONOCYTES % 8.2 % (2.0-8.0); NEUTROPHILS % 68.8 % (40.0-76.0); PLATELET 456 x1000/uL (130-400); RED BLOOD CELL COUNT 4.82 mill/uL (4.7-6.1)
[2021-01-04 10:35] LABS: CHLORIDE 99 mEq/L (98-107)
[2021-01-04 10:44] LABS: PHOSPHORUS 2.8 mg/dL (2.5-4.9)
[2021-01-04 10:47] LABS: CREATINE KINASE 246 IU/L (39-308)
[2021-01-04 10:49] LABS: CREATINE KINASE MB FRACTION 1.2 ng/mL (0.5-3.6)
[2021-01-05] VITALS (7 sets, daily range): BP systolic 112–141; BP diastolic 75–99
[2021-01-05] MEDS: SODIUM CHLORIDE 0.9% 1,000 ML IV SCH (05:49)
[2021-01-05] MEDS: METOCLOPRAMIDE HCL 10MG TABLET PO SCH ×2 (05:51→11:00)
[2021-01-05] MEDS: ENOXAPARIN 40MG/0.4ML SYR SUBCUT SCH (09:00)
[2021-01-05] MEDS: FAMOTIDINE 20MG TABLET PO SCH (09:00)
[2021-01-05] MEDS ORDERED: POTASSIUM CHLORIDE 20MEQ/PACKET PO NR (10:30)
== END 2021-01-05 12:42 | disposition home or self-care (01) | DRG 812 ==
LOC: ER 05:44 → MICUSO 10:54 → 3WST 01-04 03:21
PROVIDERS: ADMIT Internal Medicine; ATTEND Internal Medicine
PROC: 02HV33Z Insertion of Infusion Device into Superior Vena Cava, Percutaneous Approach (ICD-10-PCS; principal; 2021-01-03)
PROC: B548ZZA Ultrasonography of Superior Vena Cava, Guidance (ICD-10-PCS; 2021-01-03)
DX: T40.7X1A Poisoning by cannabis (derivatives), accidental (unintentional), initial encounter (principal); E87.1 Hypo-osmolality and hyponatremia; E87.6 Hypokalemia; F12.10 Cannabis abuse, uncomplicated; R10.13 Epigastric pain; R11.2 Nausea with vomiting, unspecified; Z79.899 Other long term (current) drug therapy; Z71.51 Drug abuse counseling and surveillance of drug abuser; Y92.89 Other specified places as the place of occurrence of the external cause
CPT/HCPCS: 36415; 71045; 76937; 80053; 80305; 80320; 82550; 82553; 83735; 84100; 84484; 85025; 99285; C1725; J1650; J1885; J2405; J3490; J7030; J7040; J8597; G0480

== ENCOUNTER 2021-07-31 12:43 | Emergency (ER) | payer MEDICAID ==
[~2021-07-31] VITALS: Ht 185.4 cm; Wt 70.0 kg
[~2021-07-31 12:43] MED LIST changes: -OMEP40CA12 MT; +OMEP40CA20 MT
[2021-07-31] MEDS ORDERED: KETOROLAC 60MG/2ML VIAL IM STA (12:54)
[2021-07-31] MEDS ORDERED: ONDANSETRON 4MG ODT PO STA (12:54)
[2021-07-31 14:19] LABS: BASOPHILS % 0.6 % (0.0-2.0); EOSINOPHILS % 0.2 % (0.0-5.0); HEMATOCRIT. 55.5 % (42.0-52.0); HEMOGLOBIN. 18.2 g/dL (14.0-18.0); LYMPHOCYTES % 29.4 % (20.0-50.0); MEAN CORPUSCULAR HEMOGLOBIN 27.8 pg (28.0-32.0); MEAN CORPUSCULAR VOLUME 84.7 fL (80.0-94.0); MEAN PLATELET VOLUME 6.9 fl (7.4-10.4); MONOCYTES % 10.4 % (2.0-8.0); NEUTROPHILS % 59.4 % (40.0-76.0); PLATELET 413 x1000/uL (130-400); RED BLOOD CELL COUNT 6.55 mill/uL (4.7-6.1); RED CELL DISTRIBUTION WIDTH 14.5 % (11.6-14.6)
[2021-07-31 14:27] LABS: CHLORIDE 88 mEq/L (98-107)
[2021-07-31 14:31] LABS: ETHANOL BLOOD < 10 mg/dL
[2021-07-31] MEDS ORDERED: MAGNESIUM/ALUMINUM HYDROXIDE/SIMETHICONE 30ML UDC PO STA (16:00)
[2021-07-31] MEDS ORDERED: DICYCLOMINE 10 MG/5 ML ORAL SYR PO STA (16:00)
[2021-07-31] MEDS ORDERED: OMEP40CA20 MT (16:46)
[2021-07-31 17:02] LABS: CLARITY URINE TURBID (CLEAR); COLOR URINE ORANGE (YELLOW); KETONES URINE 1+ (NEGATIVE); LEUKOCYTE ESTERASE URINE 1+ (NEGATIVE); NITRITE URINE POSITIVE (NEGATIVE); OCCULT BLOOD URINE 2+ (NEGATIVE); PROTEIN URINE 4+ (NEGATIVE); SPECIFIC GRAVITY URINE 1.037 (1.005-1.030)
[2021-07-31 17:13] LABS: *BARBITURATES SCREEN URINE NEGATIVE (NEGATIVE); *COCAINE SCREEN URINE NEGATIVE (NEGATIVE); METHADONE URINE SCREEN NEGATIVE (NEGATIVE)
[2021-07-31 17:14] LABS: *AMPHETAMINES SCREEN URINE NEGATIVE (NEGATIVE); *BENZODIAZEPINES SCREEN URINE NEGATIVE (NEGATIVE); CANNABINOID URINE SCREEN PRESUMTIVE POSITIVE (NEGATIVE); OPIATES URINE SCREEN NEGATIVE (NEGATIVE); PHENCYCLIDINE URINE SCREEN NEGATIVE (NEGATIVE)
[2021-07-31 17:35] VITALS: BP 135/75
== END 2021-07-31 17:37 | disposition home or self-care (01) ==
LOC: ER 12:43
DX: R10.33 Periumbilical pain (principal); R11.2 Nausea with vomiting, unspecified; F12.10 Cannabis abuse, uncomplicated; Z79.899 Other long term (current) drug therapy
CPT/HCPCS: 36415; 74176; 80053; 80305; 80320; 81003; 83690; 85025; 93005; 96372; 99285; J1885; Q0162; G0480

== ENCOUNTER 2021-11-10 05:37 | Inpatient (IN) | payer MEDICAID ==
[~2021-11-10] VITALS: Ht 182.9 cm; Wt 68.0 kg
[2021-11-10] MEDS ORDERED: MORPHINE SULFATE 4 MG/ML CPJ (NOT FOR IM USE) IV STA (06:03)
[2021-11-10] MEDS ORDERED: ONDANSETRON HCL 4MG/2ML INJ IV ONE (06:15)
[2021-11-10] MEDS ORDERED: SODIUM CHLORIDE 0.9% 1,000 ML IV ONE (06:15)
[2021-11-10 06:32] LABS: BASOPHILS % 0.4 % (0.0-2.0); EOSINOPHILS % 0.2 % (0.0-5.0); HEMATOCRIT. 51.7 % (42.0-52.0); HEMOGLOBIN. 17.8 g/dL (14.0-18.0); LYMPHOCYTES % 15.2 % (20.0-50.0); MEAN CORPUSCULAR VOLUME 84.4 fL (80.0-94.0); MONOCYTES % 9.1 % (2.0-8.0); NEUTROPHILS % 75.1 % (40.0-76.0); PLATELET 371 x1000/uL (130-400); RED BLOOD CELL COUNT 6.13 mill/uL (4.7-6.1); RED CELL DISTRIBUTION WIDTH 13.6 % (11.6-14.6)
[2021-11-10 06:40] LABS: CHLORIDE 80 mEq/L (98-107)
[2021-11-10] MEDS ORDERED: POTASSIUM CHLORIDE INJ 40 MEQ in DEXT 5% WATER 500 ML IV ONE (07:00)
[2021-11-10] MEDS ORDERED: KCL 20MEQ/100ML PREMIX 100 ML IV NR (10:00)
[2021-11-10] MEDS ORDERED: ZOLPIDEM TARTRATE 5MG TABLET PO PRN (10:00)
[2021-11-10] MEDS ORDERED: GUAIFENESIN 200MG/10ML SUGAR FREE UDC PO PRN (10:00)
[2021-11-10] MEDS ORDERED: NITROGLYCERIN 0.4MG TABLET SL SL PRN (10:00)
[2021-11-10] MEDS ORDERED: NA PHOS,M-B/NA PHOS,DI-BA ENEMA 118ML PR PRN (10:00)
[2021-11-10] MEDS ORDERED: IPRATROPIUM/ALBUTEROL 0.5-3(2.5)MG/3ML NEB NEB PRN (10:00)
[2021-11-10] MEDS ORDERED: DOCUSATE SODIUM 100MG CAPSULE PO PRN (10:00)
[2021-11-10] MEDS ORDERED: CLONIDINE 0.1MG TABLET PO PRN (10:00)
[2021-11-10] MEDS ORDERED: MAGNESIUM/ALUMINUM HYDROXIDE/SIMETHICONE 30ML UDC PO PRN (10:00)
[2021-11-10] MEDS ORDERED: ACETAMINOPHEN 325MG TABLET PO PRN ×2 (10:00)
[2021-11-10] MEDS: ENOXAPARIN 40MG/0.4ML SYR SUBCUT SCH (10:35)
[2021-11-10] MEDS: DEXT 5%/LACTATED RINGERS 1,000 ML IV SCH ×2 (10:36→23:42)
[2021-11-10] MEDS ORDERED: POTASSIUM CHLORIDE 20MEQ TABLET SR PO NR ×2 (11:00→14:00)
[2021-11-10 12:19] LABS: CLARITY URINE CLEAR (CLEAR); COLOR URINE YELLOW (YELLOW); KETONES URINE TRACE (NEGATIVE); LEUKOCYTE ESTERASE URINE NEGATIVE (NEGATIVE); NITRITE URINE NEGATIVE (NEGATIVE); OCCULT BLOOD URINE 1+ (NEGATIVE); PROTEIN URINE 1+ (NEGATIVE); SPECIFIC GRAVITY URINE 1.014 (1.005-1.030); UROBILINOGEN URINE 0.2 E.U./dL (0.2-1.0)
[2021-11-10 12:28] LABS: *AMPHETAMINES SCREEN URINE NEGATIVE (NEGATIVE); *BARBITURATES SCREEN URINE NEGATIVE (NEGATIVE); *BENZODIAZEPINES SCREEN URINE NEGATIVE (NEGATIVE); *COCAINE SCREEN URINE NEGATIVE (NEGATIVE); CANNABINOID URINE SCREEN PRESUMTIVE POSITIVE (NEGATIVE); METHADONE URINE SCREEN NEGATIVE (NEGATIVE); OPIATES URINE SCREEN PRESUMTIVE POSITIVE (NEGATIVE); PHENCYCLIDINE URINE SCREEN NEGATIVE (NEGATIVE)
[2021-11-10] MEDS: ONDANSETRON HCL 4MG/2ML INJ IV PRN ×2 (14:50→23:41)
[2021-11-10] MEDS: KETOROLAC 15MG/ML VIAL IV PRN ×2 (15:02→23:42)
[2021-11-11] VITALS: BP_SYST 118; BP_SYST 120; BP_DIAS 80; BP_DIAS 85
[2021-11-11 04:00] VITALS: BP 146/88
[2021-11-11] MEDS: KETOROLAC 15MG/ML VIAL IV PRN ×3 (06:15→21:05)
[2021-11-11] MEDS: ONDANSETRON HCL 4MG/2ML INJ IV PRN ×3 (06:16→21:04)
[2021-11-11] MEDS: PANTOPRAZOLE SODIUM 40 MG/VIAL IV SCH (09:30)
[2021-11-11] MEDS: ENOXAPARIN 40MG/0.4ML SYR SUBCUT SCH (09:30)
[2021-11-11 09:59] LABS: BASOPHILS % 0.4 % (0.0-2.0); EOSINOPHILS % 0.5 % (0.0-5.0); HEMATOCRIT. 50.4 % (42.0-52.0); HEMOGLOBIN. 16.9 g/dL (14.0-18.0); LYMPHOCYTES % 17.8 % (20.0-50.0); MEAN CORPUSCULAR HEMOGLOBIN 28.9 pg (28.0-32.0); MEAN PLATELET VOLUME 7.2 fl (7.4-10.4); MONOCYTES % 9.1 % (2.0-8.0); NEUTROPHILS % 72.2 % (40.0-76.0); PLATELET 320 x1000/uL (130-400); RED BLOOD CELL COUNT 5.86 mill/uL (4.7-6.1); RED CELL DISTRIBUTION WIDTH 13.1 % (11.6-14.6)
[2021-11-11 10:12] LABS: CHLORIDE 85 mEq/L (98-107)
[2021-11-11 10:25] LABS: PHOSPHORUS 2.9 mg/dL (2.5-4.9)
[2021-11-11] MEDS ORDERED: POTASSIUM CHLORIDE 20MEQ/PACKET PO NR (11:15)
[2021-11-11] MEDS: DEXT 5%/LACTATED RINGERS 1,000 ML IV SCH ×2 (14:10→21:13)
[2021-11-11 20:00] VITALS: BP 118/81
[2021-11-11] MEDS ORDERED: KETOROLAC 15MG/ML VIAL IV PRN (22:30)
[2021-11-12] VITALS: BP 119/85
[2021-11-12 04:00] VITALS: BP 135/56
[2021-11-12 08:00] VITALS: BP 118/53
[2021-11-12 08:34] LABS: BASOPHILS % 0.5 % (0.0-2.0); EOSINOPHILS % 2.3 % (0.0-5.0); HEMATOCRIT. 44.3 % (42.0-52.0); HEMOGLOBIN. 14.8 g/dL (14.0-18.0); LYMPHOCYTES % 33.3 % (20.0-50.0); MEAN CORPUSCULAR HEMOGLOBIN 28.4 pg (28.0-32.0); MEAN CORPUSCULAR VOLUME 84.9 fL (80.0-94.0); MEAN PLATELET VOLUME 7.1 fl (7.4-10.4); MONOCYTES % 13.1 % (2.0-8.0); NEUTROPHILS % 50.8 % (40.0-76.0); PLATELET 310 x1000/uL (130-400); RED BLOOD CELL COUNT 5.21 mill/uL (4.7-6.1); RED CELL DISTRIBUTION WIDTH 12.9 % (11.6-14.6)
[2021-11-12 08:49] LABS: CHLORIDE 89 mEq/L (98-107)
[2021-11-12 09:00] LABS: PHOSPHORUS 2.6 mg/dL (2.5-4.9)
[2021-11-12] MEDS: PANTOPRAZOLE SODIUM 40 MG/VIAL IV SCH (09:34)
[2021-11-12] MEDS: ENOXAPARIN 40MG/0.4ML SYR SUBCUT SCH (09:35)
[2021-11-12 12:00] VITALS: BP 117/71
[2021-11-12 16:00] VITALS: BP 113/73
[2021-11-12 20:00] VITALS: BP 104/63
[2021-11-12] MEDS ORDERED: POTASSIUM CHLORIDE 20MEQ TABLET SR PO NR (22:30)
[2021-11-13] VITALS: BP 118/78
[2021-11-13 04:00] VITALS: BP 103/84
[2021-11-13 08:00] VITALS: BP 100/62
[2021-11-13 08:00] LABS: CHLORIDE 104 mEq/L (98-107)
[2021-11-13] MEDS: ENOXAPARIN 40MG/0.4ML SYR SUBCUT SCH (09:02)
[2021-11-13] MEDS: PANTOPRAZOLE SODIUM 40 MG/VIAL IV SCH (09:02)
[2021-11-13 12:00] VITALS: BP 108/65
[2021-11-13 12:12] VITALS: BP 103/72
== END 2021-11-13 15:00 | disposition home or self-care (01) | DRG 425 ==
LOC: ER 05:37 → 6EST 08:44 → EDBEDREQSVC 10:37 → ENRESERV 22:41
PROVIDERS: ADMIT Internal Medicine; ATTEND Internal Medicine
DX: E87.6 Hypokalemia (principal); N17.0 Acute kidney failure with tubular necrosis; R11.2 Nausea with vomiting, unspecified; E87.1 Hypo-osmolality and hyponatremia; E88.09 Other disorders of plasma-protein metabolism, not elsewhere classified; K21.9 Gastro-esophageal reflux disease without esophagitis; K29.70 Gastritis, unspecified, without bleeding; N40.0 Benign prostatic hyperplasia without lower urinary tract symptoms; I10 Essential (primary) hypertension; F12.10 Cannabis abuse, uncomplicated; F17.210 Nicotine dependence, cigarettes, uncomplicated; Z79.899 Other long term (current) drug therapy
CPT/HCPCS: 36415; 80048; 80053; 80305; 81003; 83735; 84100; 85025; 93005; 99291; C9113; J1650; J1885; J2270; J2405; J3480; J7030; J7060

== ENCOUNTER 2022-07-18 12:03 | Emergency (ER) | payer MEDICAID ==
[~2022-07-18] VITALS: Ht 175.3 cm; Wt 69.0 kg
[~2022-07-18 12:03] MED LIST changes: +ONDA4TAB11 PO; -ONDA4TAB5 MT; -ONDA4TAB5 PO; -ONDA4TAB50 MT; -PANT40TA51 PO
[2022-07-18] MEDS ORDERED: DICYCLOMINE 10 MG/5 ML ORAL SYR PO STA (14:03)
[2022-07-18] MEDS ORDERED: ONDANSETRON 4MG ODT PO STA (14:03)
[2022-07-18] MEDS ORDERED: MAGNESIUM/ALUMINUM HYDROXIDE/SIMETHICONE 30ML UDC PO STA (14:03)
[2022-07-18] MEDS ORDERED: VISCOUS LIDOCAINE 2% 15 ML UDC PO STA (14:03)
[2022-07-18 14:59] LABS: BASOPHILS % 0.3 % (0.0-2.0); EOSINOPHILS % 0.1 % (0.0-5.0); HEMATOCRIT. 53.7 % (42.0-52.0); HEMOGLOBIN. 17.9 g/dL (14.0-18.0); LYMPHOCYTES % 17.5 % (20.0-50.0); MEAN CORPUSCULAR VOLUME 86.6 fL (80.0-94.0); MONOCYTES % 8.9 % (2.0-8.0); NEUTROPHILS % 73.2 % (40.0-76.0); PLATELET 407 x1000/uL (130-400); RED BLOOD CELL COUNT 6.19 mill/uL (4.7-6.1); RED CELL DISTRIBUTION WIDTH 14.3 % (11.6-14.6)
[2022-07-18 15:07] LABS: CHLORIDE 95 mEq/L (98-107)
[2022-07-18] MEDS ORDERED: ONDANSETRON 4MG ODT PO NR (15:45)
[2022-07-18] MEDS ORDERED: DICYCLOMINE 10 MG/5 ML ORAL SYR PO NR (15:45)
[2022-07-18] MEDS ORDERED: VISCOUS LIDOCAINE 2% 15 ML UDC PO NR (15:45)
[2022-07-18] MEDS ORDERED: MAGNESIUM/ALUMINUM HYDROXIDE/SIMETHICONE 30ML UDC PO NR (15:45)
[2022-07-18] MEDS ORDERED: KETOROLAC 15MG/ML VIAL IV ONE (16:30)
[2022-07-18] MEDS ORDERED: SODIUM CHLORIDE 0.9% 500 ML IV ONE (16:30)
[2022-07-18] MEDS ORDERED: HALOPERIDOL LACTATE 5MG/ML VIAL IM ONE (17:15)
[2022-07-18] MEDS ORDERED: MORPHINE SULFATE 4 MG/ML CPJ (NOT FOR IM USE) IV ONE (17:15)
[2022-07-18 18:07] VITALS: BP 156/115
[2022-07-18] MEDS ORDERED: IOHEXOL-300 100 ML BOTTLE ONE (19:04)
== END 2022-07-18 19:53 | disposition home or self-care (01) ==
LOC: ER 12:03
DX: K29.70 Gastritis, unspecified, without bleeding (principal); K21.9 Gastro-esophageal reflux disease without esophagitis; F12.10 Cannabis abuse, uncomplicated; Z79.899 Other long term (current) drug therapy
CPT/HCPCS: 36415; 74177; 80053; 83690; 85025; 96361; 96372; 96374; 96375; 99285; C1893; J1630; J1885; J2270; J7040; Q0162; Q9967; Z7610

== ENCOUNTER 2023-05-28 03:12 | Emergency (ER) | payer MEDICAID ==
[~2023-05-28] VITALS: Ht 177.8 cm; Wt 68.0 kg
[2023-05-28 03:14] VITALS: BP 145/95; PULSE 66; RESP 18; TEMP 98.1; O2SAT 99
[2023-05-28 03:47] LABS: BASOPHILS % 0.3 % (0.0-2.0); HEMATOCRIT. 52.4 % (42.0-52.0); HEMOGLOBIN. 17.3 g/dL (14.0-18.0); LYMPHOCYTES % 13.4 % (20.0-50.0); MEAN CORPUSCULAR HEMOGLOBIN 28.8 pg (28.0-32.0); MEAN CORPUSCULAR HGB CONC 32.9 g/dL (31.0-37.0); MEAN CORPUSCULAR VOLUME 87.3 fL (80.0-94.0); MONOCYTES % 7.4 % (2.0-8.0); NEUTROPHILS % 78.9 % (40.0-76.0); PLATELET 362 x1000/uL (130-400); RED CELL DISTRIBUTION WIDTH 13.5 % (11.6-14.6); WHITE BLOOD COUNT 17.2 x1000/uL (4.5-11.0)
[2023-05-28 03:51] LABS: DIFFERENTIAL COMMENT 1
[2023-05-28 04:20] LABS: ALANINE AMINOTRANSFERASE 30 IU/L (10-49); ALBUMIN 4.9 g/dL (3.2-4.8); ASPARTATE AMINOTRANSFERASE 45 IU/L (<34); BILIRUBIN TOTAL 0.5 mg/dL (0.1-1.0); CALCIUM 10.3 mg/dL (8.7-10.4); CARBON DIOXIDE 32 mEq/L (21-32); CHLORIDE 98 mEq/L (98-107); CREATININE 1.2 mg/dL (0.6-1.3); GLUCOSE 143 mg/dL (70-105); PROTEIN TOTAL 8.9 g/dL (6.0-8.3); SODIUM 138 mEq/L (136-145); TROPONIN I HIGH SENSITIVITY 11 ng/L (3.0-53); UREA NITROGEN BLOOD 12 mg/dL (9-23)
== END 2023-05-28 09:51 | disposition left against medical advice (07) ==
LOC: ER 03:12
DX: R10.9 Unspecified abdominal pain (principal); Z53.21 Procedure and treatment not carried out due to patient leaving prior to being seen by health care provider
CPT/HCPCS: 80053; 83690; 85025; 84484; 36415; 93005; 99281; Z7610 ×2

== ENCOUNTER 2023-07-19 17:54 | Emergency (ER) | payer MEDICAID ==
[~2023-07-19] VITALS: Ht 177.8 cm; Wt 69.0 kg
[2023-07-19 18:03] VITALS: BP 149/86; TEMP 98.1; O2SAT 97
[2023-07-19 18:04] VITALS: PULSE 99; RESP 18
[2023-07-19 19:51] LABS: BASOPHILS % 0.4 % (0.0-2.0); EOSINOPHILS % 0.1 % (0.0-5.0); HEMATOCRIT. 46.6 % (42.0-52.0); HEMOGLOBIN. 15.5 g/dL (14.0-18.0); LYMPHOCYTES % 10.9 % (20.0-50.0); MEAN CORPUSCULAR HEMOGLOBIN 29.4 pg (28.0-32.0); MEAN CORPUSCULAR HGB CONC 33.3 g/dL (31.0-37.0); MEAN CORPUSCULAR VOLUME 88.3 fL (80.0-94.0); MEAN PLATELET VOLUME 6.9 fl (7.4-10.4); MONOCYTES % 4.8 % (2.0-8.0); NEUTROPHILS % 83.8 % (40.0-76.0); PLATELET 399 x1000/uL (130-400); RED BLOOD CELL COUNT 5.28 mill/uL (4.7-6.1); RED CELL DISTRIBUTION WIDTH 13.3 % (11.6-14.6); WHITE BLOOD COUNT 13.2 x1000/uL (4.5-11.0)
[2023-07-19 19:54] LABS: DIFFERENTIAL COMMENT 1
[2023-07-19 20:08] LABS: ALANINE AMINOTRANSFERASE 32 IU/L (10-49); ALBUMIN 5.1 g/dL (3.2-4.8); ASPARTATE AMINOTRANSFERASE 29 IU/L (<34); BILIRUBIN TOTAL 0.4 mg/dL (0.1-1.0); CALCIUM 9.7 mg/dL (8.7-10.4); CARBON DIOXIDE 25 mEq/L (21-32); CHLORIDE 102 mEq/L (98-107); CREATININE 0.9 mg/dL (0.6-1.3); GLUCOSE 121 mg/dL (70-105); POTASSIUM 3.7 mEq/L (3.5-5.1); PROTEIN TOTAL 8.6 g/dL (6.0-8.3); SODIUM 139 mEq/L (136-145); UREA NITROGEN BLOOD 9 mg/dL (9-23)
[2023-07-19] MEDS: SODIUM CHLORIDE 0.9% 1,000 ML IV ONE (20:45)
[2023-07-19] MEDS: HALOPERIDOL LACTATE 5MG/ML VIAL IM ONE (20:50)
== END 2023-07-20 00:03 | disposition home or self-care (01) ==
LOC: ER 17:54
DX: R11.2 Nausea with vomiting, unspecified (principal); E86.0 Dehydration; K21.9 Gastro-esophageal reflux disease without esophagitis; Z79.899 Other long term (current) drug therapy
CPT/HCPCS: 80053; 83690; 85025; 36415; 96360; 96372; 99283; J1630; J7030; Z7610 ×3

== ENCOUNTER 2023-07-23 11:49 | Emergency (ER) | payer MEDICAID ==
[~2023-07-23] VITALS: Ht 177.8 cm; Wt 69.0 kg
[2023-07-23 11:52] VITALS: BP 129/95; TEMP 98.2; O2SAT 99
[2023-07-23 11:56] VITALS: PULSE 86; RESP 15
[2023-07-23 14:56] LABS: BASOPHILS % 0.4 % (0.0-2.0); EOSINOPHILS % 0.4 % (0.0-5.0); HEMATOCRIT. 54.9 % (42.0-52.0); HEMOGLOBIN. 18.4 g/dL (14.0-18.0); LYMPHOCYTES % 25.4 % (20.0-50.0); MEAN CORPUSCULAR HEMOGLOBIN 29.4 pg (28.0-32.0); MEAN CORPUSCULAR HGB CONC 33.6 g/dL (31.0-37.0); MEAN CORPUSCULAR VOLUME 87.5 fL (80.0-94.0); MEAN PLATELET VOLUME 6.9 fl (7.4-10.4); MONOCYTES % 10.1 % (2.0-8.0); NEUTROPHILS % 63.7 % (40.0-76.0); PLATELET 384 x1000/uL (130-400); RED BLOOD CELL COUNT 6.28 mill/uL (4.7-6.1); RED CELL DISTRIBUTION WIDTH 12.9 % (11.6-14.6); WHITE BLOOD COUNT 13.3 x1000/uL (4.5-11.0)
[2023-07-23] MEDS: METOCLOPRAMIDE HCL 10MG TABLET PO ONE (14:57)
[2023-07-23 15:09] LABS: ALANINE AMINOTRANSFERASE 59 IU/L (10-49); ASPARTATE AMINOTRANSFERASE 46 IU/L (<34); BILIRUBIN TOTAL 0.8 mg/dL (0.1-1.0); CALCIUM 9.6 mg/dL (8.7-10.4); CARBON DIOXIDE 34 mEq/L (21-32); CHLORIDE 94 mEq/L (98-107); CREATININE 1.2 mg/dL (0.6-1.3); GLUCOSE 108 mg/dL (70-105); POTASSIUM 3.7 mEq/L (3.5-5.1); PROTEIN TOTAL 8.3 g/dL (6.0-8.3); SODIUM 134 mEq/L (136-145); UREA NITROGEN BLOOD 13 mg/dL (9-23)
== END 2023-07-23 17:32 | disposition home or self-care (01) ==
LOC: ER 11:49
DX: K29.60 Other gastritis without bleeding (principal); R11.2 Nausea with vomiting, unspecified; K21.9 Gastro-esophageal reflux disease without esophagitis
CPT/HCPCS: 99283; 80053; 85025; 36415; J8597